=== PATIENT | female | born 1935 | race Caucasian/White ===

== ENCOUNTER → 2016-08-01 | Day surgery (SDC) | payer MEDICARE ==
[~2016-08-01] MED LIST: ACET325T9 PO; ACET500T68 PO; ALLO300T PO; ARFO15VI IH; ARFO15VI NEB; ASPI81TA50 PO; ATOR10TA60 PO; BIFI4CAP PO; BUDE0.5A IH; BUDE0.5A NEB; CARV12.52 PO; CHOL2000 PO; CHOL200027 PO; CILO50TA PO; CLOP75TA PO; COLE3.754 PO; DILT300C2; DILT300C23 PO; DOXY100C2 PO; DOXY100T PO; FENTANYL PF 100 MCG/2 ML VIAL. IV PRN; FORM20VI IH; HYDR25TA9 PO; IV RINGERS,LACTATED 1000ML 1,000 ML IV SCH; LACT1CAP2 PO; LACT1CAP29 PO; LEVO500T38 PO; LIDOCAINE 1% 1 ML SYRINGE. ID PRN; LIDOCAINE 2% PF Vial for OR 5 ML VIAL. ONE; LOSA100T6 PO; LOSA1TAB17 PO; OMEP40CA5 PO; ONDANSETRON PF 4 MG/2 ML VIAL. IV PRN; PANT40TA3 PO; POTA20TA84 PO; PRED-220 PO; PROCHLORPERAZINE 10 MG/2 ML VIAL. IV PRN; PROPOFOL 20 ML IV ONE; TBO-480S SQ; UBID200C4 PO; WARF2.5T PO; WARF2.5T7 PO; WARF3TAB PO; WARF3TAB7 PO; WARF5TAB7 PO; losartan-hctz
[2016-08-01 08:46] VITALS: BP 171/77
== END | disposition home or self-care (01) ==
LOC: ENDOS 06:49
PROVIDERS: ATTEND Internal Medicine Gastroenterology
DX: K22.2 Esophageal obstruction (principal); K29.50 Unspecified chronic gastritis without bleeding; E78.00 Pure hypercholesterolemia, unspecified; I10 Essential (primary) hypertension; J44.9 Chronic obstructive pulmonary disease, unspecified; M19.90 Unspecified osteoarthritis, unspecified site; K21.9 Gastro-esophageal reflux disease without esophagitis; D64.9 Anemia, unspecified; Z90.49 Acquired absence of other specified parts of digestive tract; Z87.01 Personal history of pneumonia (recurrent); Z90.710 Acquired absence of both cervix and uterus; Z87.39 Personal history of other diseases of the musculoskeletal system and connective tissue; Z90.721 Acquired absence of ovaries, unilateral
CPT/HCPCS: 43235; 43450; J2704

== ENCOUNTER → 2016-09-13 | Outpatient (CLI) | payer MEDICARE ==
[2016-08-01 08:46] VITALS: BP 171/77
[~2016-09-13] MED LIST changes: -FENTANYL PF 100 MCG/2 ML VIAL. IV PRN; -IV RINGERS,LACTATED 1000ML 1,000 ML IV SCH; -LIDOCAINE 1% 1 ML SYRINGE. ID PRN; -LIDOCAINE 2% PF Vial for OR 5 ML VIAL. ONE; -ONDANSETRON PF 4 MG/2 ML VIAL. IV PRN; -PROCHLORPERAZINE 10 MG/2 ML VIAL. IV PRN; -PROPOFOL 20 ML IV ONE; -WARF2.5T7 PO; +WARF2.5T71 PO
--- NOTE | 2016-09-13 11:03 | RAD ---
CT scan of the chest without contrast 09/13/2016 Clinical history: History of lung cancer. Cough for 3 months. Technique: Unenhanced, contiguous, 5 mm axial sections were obtained through the chest and upper abdomen. One or more of the following individualized dose reduction techniques were utilized for this study: 1. Automated exposure control. 2. Adjustment of the mA and/or kV according to patient size. 3. Use of iterative reconstruction technique. Findings: Comparison study is dated 03/07/2016. A pacemaker is seen within the left anterior superior chest wall. Leads extend to the right atrium and right ventricle of the heart. Moderate atherosclerotic calcification of the thoracic aorta and its branches is noted. The thoracic aorta is tortuous but tapers normally. The heart is mildly enlarged. A masslike opacity is seen involving the left upper lobe which extends to the left hilum. It measures 4.4 x 4.3 x 3.3 cm in transverse, craniocaudal and AP dimensions. It has decreased in size slightly since the previous examination where it measured 4.8 x 5.4 x 3.4 cm in size. No mediastinal lymphadenopathy is seen. A 1 cm calcified granuloma is seen involving the right hilum. Smaller calcified mediastinal lymph nodes are seen. A graft is seen extending from the right axillary artery along the right lateral chest wall and lateral right abdominal wall, unchanged. Mild emphysematous changes are seen involving both lungs. Minimal dependent subsegmental atelectasis is seen bilaterally. No pneumothorax or pleural effusion is seen. Minimal dependent subsegmental atelectasis is seen involving both lower lobes. Images through the upper abdomen demonstrate moderate to severe atherosclerotic plaque formation involving the abdominal aorta and its branches. Surgical clips are seen within the right upper quadrant of the abdomen consistent with a cholecystectomy. Minimal S shaped curvature of the thoracolumbar spine is seen. Degenerative changes are seen involving the thoracic spine. Impression: 1. Slight interval decrease in size of the masslike opacity involving the left upper lobe consistent with the patient's history of lung cancer. 2. No acute abnormality is seen.
== END | disposition home or self-care (01) ==
LOC: CT 08:48
PROVIDERS: ATTEND Internal Medicine Critical Care Medicine
DX: R05 Cough (principal); Z85.118 Personal history of other malignant neoplasm of bronchus and lung
CPT/HCPCS: 71250

== ENCOUNTER 2016-11-18 15:35 | Emergency (ER) | payer MEDICARE ==
[~2016-11-18] VITALS: Ht 162.6 cm; Wt 72.6 kg
[~2016-11-18 15:35] MED LIST changes: +COLE3.753 PO; -COLE3.754 PO; -LEVO500T38 PO; +LEVO500T59 PO; -UBID200C4 PO; +UBID200C7 PO; -WARF2.5T PO; +WARF2.5T83 PO; -WARF3TAB PO; +WARF3TAB54 PO
[2016-11-18 15:50] VITALS: BP 182/99
[2016-11-18] MEDS ORDERED: MAGN400O7 PO (16:12)
[2016-11-18] MEDS ORDERED: POLY17PO29 PO (16:12)
[2016-11-18] MEDS ORDERED: ACET325T9 PO (16:12)
[2016-11-18] MEDS ORDERED: SENN-37 PO (16:12)
--- NOTE | 2016-11-18 16:12 | PHYS DOC ---
Past Medical History Past Medical History: Cancer, COPD, DVT, GERD, High Cholesterol, Hypertension, Pneumonia, Renal Disease, Vascular Disease Additional Past Medical Histor: Lupus, colitis, sleep apnea, gout, squamous cell, DDD, Mohan's, kidney dz Past Surgical History: Angioplasty, Cholecystectomy, Hysterectomy, Lumbar Laminectomy, Oophorectomy, Pacemaker Additional Past Surgical Histo: breast bx, trigger thumb, stents to LE, renal artery stent, diverticulitis, Alcohol Use: Rarely Drug Use: None Adult General Chief Complaint Chief Complaint: CONSTIPATION HPI HPI 81-year-old female presenting to the emergency department with 2 chief complaints. Chief complaint #1: The patient with multiple comorbidities complains of low back pain. She has a history of low back pain and over the past 4-5 days has had worsening lumbar back pain that is radiating down her left leg. It is worse with walking and improved with rest. She is been taking [id number] medications without any relief. The pain is sharp and intermittent. Complaint #2: The patient complains of constipation. She reports her the past 3 or 4 days she's had less bowel movements and they have been more hard stool. She denies any blood in her stool she denies any numbness weakness or tingling. Review of systems is negative for chest pain shortness of breath nausea vomiting fevers chills bloody stools headache neck stiffness confusion numbness weakness or tingling. All other review of systems is negative unless otherwise noted in history of present illness. Pertinent physical exam findings: The patient has mild tenderness to palpation along the left lumbar region. There are no step-offs ecchymosis lacerations or abrasions present. She denies any injuries or trauma. Positive left straight leg test. Abdomen is soft and nondistended. ED course: 81-year-old female presenting with low back pain and constipation. She drove herself and was unable to find a ride home so unfortunately were unable to give her any medications for pain here area I wrote her prescriptions for pain to go home with along with oral laxatives to follow-up with her doctor in 2-3 days. The patient was then discharged home in stable condition to follow up with their primary care physician over the next 2-3 days. They were to return if their symptoms worsened or if they were concerned for any reason. Face -to-face discharge instructions and return precautions were given. Patient's questions were answered to their satisfaction. Patient is comfortable plan. Review of Systems Review of Systems SEE ABOVE. Allergies Allergies Allergies Coded Allergies Type Severity Reaction Last Updated Verified bleomycin Allergy Severe 08/01/16 Yes cyclophosphamide Allergy Severe 08/01/16 Yes doxorubicin Allergy Severe 08/01/16 Yes etoposide Allergy Severe 08/01/16 Yes ibuprofen Allergy Severe CAUSED SUDDEN SEVERE PAIN PER PT REPORT 08/01/16 Yes methotrexate Allergy Severe 08/01/16 Yes paclitaxel Allergy Severe 08/01/16 Yes vinblastine Allergy Severe 08/01/16 Yes vincristine Allergy Severe 08/01/16 Yes azithromycin Allergy Intermediate LOSS OF HEARING 08/01/16 Yes clarithromycin Allergy Intermediate "SLOWED URINE" 08/01/16 Yes codeine Allergy Intermediate 08/01/16 Yes levofloxacin Allergy Intermediate DIZZY 08/01/16 Yes losartan Allergy Intermediate 08/01/16 Yes metronidazole Allergy Intermediate VOMITING, DIZZY 08/01/16 Yes morphine Allergy Intermediate 08/01/16 Yes roflumilast Allergy Intermediate DIZZY 08/01/16 Yes sulfadimethoxine Allergy Intermediate 08/01/16 Yes trimethoprim Allergy Intermediate 08/01/16 Yes vancomycin Allergy Intermediate Itching 08/01/16 Yes cholestyramine Adverse Reaction Intermediate 08/01/16 Yes pantoprazole Adverse Reaction Intermediate stomach cramps 08/01/16 Yes Physical Exam Physical Exam Constitutional: Well developed, well nourished, no acute distress, non-toxic appearance. [] HENT: Normocephalic, atraumatic, bilateral external ears normal, oropharynx moist, no oral exudates, nose normal. [] Eyes: PERRLA, EOMI, conjunctiva normal, no discharge. [] Neck: Normal range of motion, no tenderness, supple, no stridor. [] Cardiovascular:Heart rate regular rhythm, no murmur [] Lungs & Thorax: Bilateral breath sounds clear to auscultation [] Abdomen: Bowel sounds normal, soft, no tenderness, no masses, no pulsatile masses. [] Skin: Warm, dry, no erythema, no rash. [] Back: see above Extremities: No tenderness, no cyanosis, no clubbing, ROM intact, no edema. [] Neurologic: Alert and oriented X 3, normal motor function, normal sensory function, no focal deficits noted. [] Psychologic: Affect normal, judgement normal, mood normal. [] EKG EKG [] Radiology/Procedures Radiology/Procedures [] Course & Med Decision Making Course & Med Decision Making Pertinent Labs and Imaging studies reviewed. (See chart for details) [] Dragon Disclaimer Dragon Disclaimer This electronic medical record was generated, in whole or in part, using a voice recognition dictation system. Departure Departure Impression: Primary Impression: Constipation Additional Impression: Low back pain Disposition: HOME, SELF-CARE Condition: STABLE Referrals: AFTAB MCCALL MD (PCP) Patient Instructions: Back Exercises, Back Injury Prevention, Back Pain, Adult Additional Instructions: Thank you for allowing us to participate in your care today. Followup with your primary care physician in 3 days if your symptoms do not improve. If you do not have a primary care provider you can ask for a list of our primary care providers. Return to the emergency department you have any new or concerning findings. This should be evaluated by the primary care physician and any necessary consulting services for continued management within a few days after discharge. Return to emergency room if you have any new or concerning symptoms including but not limited to fever, chills, nausea, vomiting, intractable pain, any new rashes, chest pain, shortness of air, uncontrolled bleeding, difficulty breathing, and/or vision loss. Scripts Magnesium Hydroxide (MILK OF MAGNESIA) 400 Mg/5 Ml Oral.susp 400 MG PO DAILY for 5 Days, MISC Prov: NICHOLE GUNN MD 11/18/16 Sennosides/Docusate Sodium (SENOKOT-S TABLET) 1 Each Tablet 1 TAB PO BID, #10 TAB Prov: NICHOLE GUNN MD 11/18/16 Polyethylene Glycol 3350 (MIRALAX) 17 Gm Powd.pack 1 PACKET PO DAILY, #30 PACKET 3 Refills Prov: NICHOLE GUNN MD 11/18/16 Acetaminophen (TYLENOL) 325 Mg Tablet 650 MG PO PRN Q8HRS Y for PAIN, #20 Prov: NICHOLE GUNN MD 11/18/16 Problem Qualifiers NICHOLE GUNN MD Nov 18, 2016 16:12
== END 2016-11-18 16:20 | disposition home or self-care (01) ==
LOC: ER 15:35
DX: M54.5 Low back pain (principal); K59.00 Constipation, unspecified; K22.70 Barrett's esophagus without dysplasia; E78.00 Pure hypercholesterolemia, unspecified; G47.30 Sleep apnea, unspecified; I10 Essential (primary) hypertension; J44.9 Chronic obstructive pulmonary disease, unspecified; K21.9 Gastro-esophageal reflux disease without esophagitis; Z95.0 Presence of cardiac pacemaker; Z90.721 Acquired absence of ovaries, unilateral; Z86.718 Personal history of other venous thrombosis and embolism; Z90.49 Acquired absence of other specified parts of digestive tract; Z90.710 Acquired absence of both cervix and uterus; M10.9 Gout, unspecified; Z87.01 Personal history of pneumonia (recurrent); Z88.1 Allergy status to other antibiotic agents; Z88.5 Allergy status to narcotic agent; Z88.2 Allergy status to sulfonamides; Z88.8 Allergy status to other drugs, medicaments and biological substances
CPT/HCPCS: 99284

== ENCOUNTER 2017-02-10 13:20 | Emergency (ER) | payer MEDICARE ==
[~2017-02-10] VITALS: Ht 165.1 cm; Wt 69.4 kg
[~2017-02-10 13:20] MED LIST changes: +MAGN400O7 PO; +POLY17PO29 PO; +SENN-37 PO
[2017-02-10 13:40] VITALS: BP 179/83
--- NOTE | 2017-02-10 14:10 | PHYS DOC ---
Past Medical History Past Medical History: Cancer, COPD, DVT, GERD, High Cholesterol, Hypertension, Pneumonia, Renal Disease, Vascular Disease Additional Past Medical Histor: Lupus, colitis, sleep apnea, gout, squamous cell, DDD, Mohan's, kidney dz Past Surgical History: Angioplasty, Cholecystectomy, Hysterectomy, Lumbar Laminectomy, Oophorectomy, Pacemaker Additional Past Surgical Histo: breast bx, trigger thumb, stents to LE, renal artery stent, diverticulitis, Alcohol Use: Rarely Drug Use: None Adult General Chief Complaint Chief Complaint: tongue pain HPI HPI 81-year-old female presenting to the emergency department today with pain in her tongue is worse when she swallows. She denies any difficulty swallowing or difficulty breathing or drooling. The pain is started approximate 7-10 days ago. It is sharp shooting pain worse with eating and without alleviating factors. She describes the pain in the back of her tongue on the right side. Review of systems is negative for chest pain shortness of breath stridor fevers chills cough neck swelling jaw pain or neck stiffness or neck pain. She denies any pain in her restorationism. She denies headache. She denies vision changes nausea vomiting numbness weakness or tingling. All other review of systems is negative unless otherwise noted in history of present illness. ED course: 81-year-old female presenting with right-sided posterior tongue pain. Patient is chronically on oxygen. He does not have any new oxygen requirements. On examination of the back of her tongue am unable to appreciate any lesions ulcerations lacerations or ecchymosis abrasions or erythema. She does not have a [employer]. She has normal range of motion of the neck and a nontender temporal artery. I have referred the patient to a dentist or an ENT doctor for further visual examination of the back of the tongue. The patient was then discharged home in stable condition to follow up with their primary care physician over the next 2-3 days. They were to return if their symptoms worsened or if they were concerned for any reason. [id number] discharge instructions and return precautions were given. Patient's questions were answered to their satisfaction. Patient is comfortable plan. Review of Systems Review of Systems SEE ABOVE. Allergies Allergies Allergies Coded Allergies Type Severity Reaction Last Updated Verified bleomycin Allergy Severe 08/01/16 Yes cyclophosphamide Allergy Severe 08/01/16 Yes doxorubicin Allergy Severe 08/01/16 Yes etoposide Allergy Severe 08/01/16 Yes ibuprofen Allergy Severe CAUSED SUDDEN SEVERE PAIN PER PT REPORT 08/01/16 Yes methotrexate Allergy Severe 08/01/16 Yes paclitaxel Allergy Severe 08/01/16 Yes vinblastine Allergy Severe 08/01/16 Yes vincristine Allergy Severe 08/01/16 Yes azithromycin Allergy Intermediate LOSS OF HEARING 08/01/16 Yes clarithromycin Allergy Intermediate "SLOWED URINE" 08/01/16 Yes codeine Allergy Intermediate 08/01/16 Yes levofloxacin Allergy Intermediate DIZZY 08/01/16 Yes losartan Allergy Intermediate 08/01/16 Yes metronidazole Allergy Intermediate VOMITING, DIZZY 08/01/16 Yes morphine Allergy Intermediate 08/01/16 Yes roflumilast Allergy Intermediate DIZZY 08/01/16 Yes sulfadimethoxine Allergy Intermediate 08/01/16 Yes trimethoprim Allergy Intermediate 08/01/16 Yes vancomycin Allergy Intermediate Itching 08/01/16 Yes cholestyramine Adverse Reaction Intermediate 08/01/16 Yes pantoprazole Adverse Reaction Intermediate stomach cramps 08/01/16 Yes Physical Exam Physical Exam SEE ABOVE Constitutional: Well developed, well nourished, no acute distress, non-toxic appearance. [] HENT: Normocephalic, atraumatic, bilateral external ears normal, oropharynx moist, no oral exudates, nose normal. []SEE ABOVE Eyes: PERRLA, EOMI, conjunctiva normal, no discharge. [] Neck: Normal range of motion, no tenderness, supple, no stridor. [] Cardiovascular:Heart rate regular rhythm, no murmur [] Lungs & Thorax: Bilateral breath sounds clear to auscultation [] Abdomen: Bowel sounds normal, soft, no tenderness, no masses, no pulsatile masses. [] Skin: Warm, dry, no erythema, no rash. [] Back: No tenderness, no CVA tenderness. [] Extremities: No tenderness, no cyanosis, no clubbing, ROM intact, no edema. [] Neurologic: Alert and oriented X 3, normal motor function, normal sensory function, no focal deficits noted. [] Psychologic: Affect normal, judgement normal, mood normal. [] EKG EKG [] Radiology/Procedures Radiology/Procedures [] Course & Med Decision Making Course & Med Decision Making Pertinent Labs and Imaging studies reviewed. (See chart for details) [] Dragon Disclaimer Dragon Disclaimer This electronic medical record was generated, in whole or in part, using a voice recognition dictation system. Departure Departure Impression: Primary Impression: Tongue pain Disposition: 01 HOME, SELF-CARE Condition: STABLE Referrals: AFTAB MCCALL MD (PCP) Additional Instructions: I am going to refer you to a dentist and an firearms sales associate called an senior care assistant within the next 7 days. I recommend [id number] ibuprofen and Tylenol for pain control until that time. Thank you for allowing us to participate in your care today. Call your Primary Doctor tomorrow and inform them of your visit today. If you do not have a primary care provider you can ask for a list of our primary care providers. Return to the emergency department you have any new or concerning findings. This should be evaluated by the primary care physician and any necessary consulting services for continued management within a few days after discharge. Return to emergency room if you have any new or concerning symptoms including but not limited to fever, chills, nausea, vomiting, intractable pain, any new rashes, chest pain, shortness of air, uncontrolled bleeding, difficulty breathing, and/or vision loss. NICHOLE GUNN MD Feb 10, 2017 14:10
== END 2017-02-10 14:54 | disposition home or self-care (01) ==
LOC: ER 13:20
DX: K14.6 Glossodynia (principal); J44.9 Chronic obstructive pulmonary disease, unspecified; K21.9 Gastro-esophageal reflux disease without esophagitis; I12.9 Hypertensive chronic kidney disease with stage 1 through stage 4 chronic kidney disease, or unspecified chronic kidney disease; N18.9 Chronic kidney disease, unspecified; M32.9 Systemic lupus erythematosus, unspecified; M10.9 Gout, unspecified; Z95.0 Presence of cardiac pacemaker; Z99.81 Dependence on supplemental oxygen; K22.70 Barrett's esophagus without dysplasia; G47.30 Sleep apnea, unspecified; E78.00 Pure hypercholesterolemia, unspecified; Z90.710 Acquired absence of both cervix and uterus; Z90.49 Acquired absence of other specified parts of digestive tract; Z90.722 Acquired absence of ovaries, bilateral; Z95.5 Presence of coronary angioplasty implant and graft; Z88.1 Allergy status to other antibiotic agents; Z88.5 Allergy status to narcotic agent; Z88.2 Allergy status to sulfonamides; Z88.6 Allergy status to analgesic agent; Z88.8 Allergy status to other drugs, medicaments and biological substances
CPT/HCPCS: 99281

== ENCOUNTER → 2017-02-12 | Outpatient (CLI) | payer MEDICARE ==
[2017-02-10 13:40] VITALS: BP 179/83
--- NOTE | 2017-02-12 13:30 | KCIC ---
Clinical Indication: Postmenopausal screening. Osteopenia Technique: Bone Densitometry was performed with dual photon absorption of the lumbar spine and proximal left femur. This is a baseline exam. Findings: Lumbar Spine: Bone density is 1.124 g/cm2 for L1-L4. T-Score is 0.7 and Z-score 3.4. Age-matched percentage is 150 %. Left Femur Total: Bone density is 0.682 g/cm2. T-Score is -2.1 and Z-score 0.0. Age-matched percentage is 100%. Impression: 1. Osteopenia in the left femur. 2. Normal bone marrow density in the lumbar spine. Electronically signed by: Artie Mehta MD (02/12/2017 1:26 PM) [id number]
== END | disposition home or self-care (01) ==
LOC: KCIC DEXA 12:42
PROVIDERS: ATTEND Physician Assistant Surgical
DX: M85.80 Other specified disorders of bone density and structure, unspecified site (principal); Z78.0 Asymptomatic menopausal state
CPT/HCPCS: 77080

== ENCOUNTER 2017-03-08 09:55 | Emergency (ER) | payer MEDICARE ==
[~2017-03-08 09:55] MED LIST changes: -LOSA1TAB17 PO; +LOSA1TAB22 PO
--- NOTE | 2017-03-08 12:08 | RAD ---
Chest, 2 views, 03/08/2017: History: Cough, shortness of breath, coughing up blood Comparison is made to a study from 05/31/2016. A left-sided transvenous pacemaker remains in place with 2 leads extending into the right heart. The heart is mildly enlarged. There is extensive calcific plaquing of the aorta. No pulmonary infiltrate is seen. There is no evidence of pleural fluid. The bony structures are demineralized. The left suprahilar opacity seen on the CT study of 09/13/2016 is not clearly visible radiographically. It may be partially obscured by the overlying left upper chest pacemaker generator. Follow-up CT scanning would best delineate this process, if clinically indicated. IMPRESSION: 1. Mild cardiomegaly and aortic atherosclerosis. 2. No acute cardiopulmonary abnormality is detected.
--- NOTE | 2017-03-08 12:09 | EKG ---
[facility] [address] [place] [address] Test Date: 2017-03-08 Test Time: 12:00:45 Pat Name: SLIME MOTA Department: Room: Gender: F [employer] Curator: : 1935 Requested By: ERIC CASTELLON Order Number: [id number] Reading MD: Measurements Intervals [place] Rate: 64 P: 53 LA: 302 QRS: -9 QRSD: 78 T: 21 QT: 382 QTc: 394 Interpretive Statements SINUS RHYTHM PROLONGED LA INTERVAL LEFTWARD AXIS QRS(T) CONTOUR ABNORMALITY CONSISTENT WITH ANTEROSEPTAL INFARCT AGE UNDETERMINED CONSISTENT WITH INFERIOR INFARCT PROBABLY OLD NON SPECIFIC ST DEPRESSION RI6.01 Unconfirmed report No previous ECG available for comparison
[2017-03-08 12:26] LABS: CALCIUM 9.2 mg/dL (8.5-10.1); GFR 53.3
[2017-03-08 12:28] LABS: HEMATOCRIT 38.7 % (36.0-47.0); HEMOGLOBIN 12.4 g/dL (12.0-15.5); RED BLOOD COUNT 4.18 x10^6/uL (3.50-5.40); RED CELL DISTRIBUTION WIDTH 17.6 % (11.5-14.5); WHITE BLOOD COUNT 9.7 x10^3/uL (4.0-11.0)
[2017-03-08 12:32] LABS: ALBUMIN 2.9 g/dL (3.4-5.0); ALBUMIN/GLOBULIN RATIO 0.8 (1.0-1.7); TOTAL BILIRUBIN 0.5 mg/dL (0.2-1.0); TOTAL PROTEIN 6.4 g/dL (6.4-8.2)
[2017-03-08 12:33] LABS: INR 2.4 (0.8-1.1); PROTHROMBIN TIME PATIENT 24.6 SEC (11.7-14.0)
--- NOTE | 2017-03-08 12:36 | RAD ---
Neck for soft tissues, 2 views, 03/08/2017: History: Shortness of breath, hemoptysis There is extensive calcific plaquing at both carotid bifurcations. There are cartilaginous calcifications in the laryngeal region. The epiglottis is normal in size and configuration. No tracheal narrowing is seen. No prevertebral soft tissue swelling is evident. The bony structures are demineralized. There are moderate degenerative changes in the cervical spine. IMPRESSION: No acute abnormality is detected.
[2017-03-08 13:00] VITALS: BP 189/78
--- NOTE | 2017-03-08 13:31 | PHYS DOC ---
Past Medical History Past Medical History: Cancer, COPD, DVT, GERD, High Cholesterol, Hypertension, Pneumonia, Renal Disease, Vascular Disease Additional Past Medical Histor: Lupus, colitis, sleep apnea, gout, squamous cell, DDD, Mohan's, kidney dz Past Surgical History: Angioplasty, Cholecystectomy, Hysterectomy, Lumbar Laminectomy, Oophorectomy, Pacemaker Additional Past Surgical Histo: breast bx, trigger thumb, stents to LE, renal artery stent, diverticulitis, Alcohol Use: Rarely Drug Use: None Adult General Chief Complaint Chief Complaint: COUGH HPI HPI Patient is a 81 year old female with a history of lung cancer and A. fib presents the ED stating that she tasted blood in her mouth since this morning. States she has had no episodes since this morning. States she spit up what appeared to be a clot. No active bleeding at this time. Patient denies chest pain, shortness of breath, dizziness, nausea/vomiting, abdominal pain, weakness or dark stools. Review of Systems Review of Systems Constitutional: Denies fever or chills [] Eyes: Denies change in visual acuity, redness, or eye pain [] HENT: Denies nasal congestion or sore throat [] Respiratory: Denies cough or shortness of breath [] Cardiovascular: No additional information not addressed in HPI [] GI: Denies abdominal pain, nausea, vomiting, bloody stools or diarrhea [] : Denies dysuria or hematuria [] Musculoskeletal: Denies back pain or joint pain [] Integument: Denies rash or skin lesions [] Neurologic: Denies headache, focal weakness or sensory changes [] Endocrine: Denies polyuria or polydipsia [] Allergies Allergies Allergies Coded Allergies Type Severity Reaction Last Updated Verified bleomycin Allergy Severe 08/01/16 Yes cyclophosphamide Allergy Severe 08/01/16 Yes doxorubicin Allergy Severe 08/01/16 Yes etoposide Allergy Severe 08/01/16 Yes ibuprofen Allergy Severe CAUSED SUDDEN SEVERE PAIN PER PT REPORT 08/01/16 Yes methotrexate Allergy Severe 08/01/16 Yes paclitaxel Allergy Severe 08/01/16 Yes vinblastine Allergy Severe 08/01/16 Yes vincristine Allergy Severe 08/01/16 Yes azithromycin Allergy Intermediate LOSS OF HEARING 08/01/16 Yes clarithromycin Allergy Intermediate "SLOWED URINE" 08/01/16 Yes codeine Allergy Intermediate 08/01/16 Yes levofloxacin Allergy Intermediate DIZZY 08/01/16 Yes losartan Allergy Intermediate 08/01/16 Yes metronidazole Allergy Intermediate VOMITING, DIZZY 08/01/16 Yes morphine Allergy Intermediate 08/01/16 Yes roflumilast Allergy Intermediate DIZZY 08/01/16 Yes sulfadimethoxine Allergy Intermediate 08/01/16 Yes trimethoprim Allergy Intermediate 08/01/16 Yes vancomycin Allergy Intermediate Itching 08/01/16 Yes cholestyramine Adverse Reaction Intermediate 08/01/16 Yes pantoprazole Adverse Reaction Intermediate stomach cramps 08/01/16 Yes Physical Exam Physical Exam Constitutional: Well developed, well nourished, no acute distress, non-toxic appearance. [] HENT: Normocephalic, atraumatic, bilateral external ears normal, oropharynx moist, no oral exudates, nose normal. [] Eyes: PERRLA, EOMI, conjunctiva normal, no discharge. [] Neck: Normal range of motion, no tenderness, supple, no stridor. [] Cardiovascular:Heart rate regular rhythm, no murmur [] Lungs & Thorax: Bilateral breath sounds clear to auscultation [] Abdomen: Bowel sounds normal, soft, no tenderness, no masses, no pulsatile masses. [] Skin: Warm, dry, no erythema, no rash. [] Back: No tenderness, no CVA tenderness. [] Extremities: No tenderness, no cyanosis, no clubbing, ROM intact, no edema. [] Neurologic: Alert and oriented X 3, normal motor function, normal sensory function, no focal deficits noted. [] Psychologic: Affect normal, judgement normal, mood normal. [] Current Patient Data Vital Signs Vital Signs Date Time Temp Pulse Resp B/P (MAP) Pulse Ox O2 Delivery O2 Flow Rate FiO2 03/08/17 11:04 98.1 85 20 189/81 (117) 92 Nasal Cannula 2.0 98.1 Lab Values Laboratory Tests Test 03/08/17 12:10 White Blood Count 9.7 x10^3/uL (4.0-11.0) Red Blood Count 4.18 x10^6/uL (3.50-5.40) Hemoglobin 12.4 g/dL (12.0-15.5) Hematocrit 38.7 % (36.0-47.0) Mean Corpuscular Volume 92 fL (79-100) Mean Corpuscular Hemoglobin 30 pg (25-35) Mean Corpuscular Hemoglobin Concent 32 g/dL (31-37) Red Cell Distribution Width 17.6 % (11.5-14.5) H Platelet Count 215 x10^3/uL (140-400) Prothrombin Time 24.6 SEC (11.7-14.0) H Prothrombin Time INR 2.4 (0.8-1.1) H PTT 40 SEC (24-38) H Sodium Level 144 mmol/L (136-145) Potassium Level 4.0 mmol/L (3.5-5.1) Chloride Level 109 mmol/L (98-107) H Carbon Dioxide Level 31 mmol/L (21-32) Anion Gap 4 (6-14) L Blood Urea Nitrogen 18 mg/dL (7-20) Creatinine 1.0 mg/dL (0.6-1.0) Estimated GFR (Cockcroft-Gault) 53.3 BUN/Creatinine Ratio 18 (6-20) Glucose Level 88 mg/dL (70-99) Calcium Level 9.2 mg/dL (8.5-10.1) Total Bilirubin 0.5 mg/dL (0.2-1.0) Aspartate Amino Transferase (AST) 23 U/L (15-37) Alanine Aminotransferase (ALT) 24 U/L (14-59) Alkaline Phosphatase 90 U/L (46-116) Total Protein 6.4 g/dL (6.4-8.2) Albumin 2.9 g/dL (3.4-5.0) L Albumin/Globulin Ratio 0.8 (1.0-1.7) L Laboratory Tests 03/08/17 12:10 Laboratory Tests 03/08/17 12:10 EKG EKG [] EKG shows sinus rhythm at 64 bpm. No STEMI or acute changes. Radiology/Procedures Radiology/Procedures []PROCEDURE: NECK SOFT TISSUE Neck for soft tissues, 2 views, 03/08/2017: History: Shortness of breath, hemoptysis There is extensive calcific plaquing at both carotid bifurcations. There are cartilaginous calcifications in the laryngeal region. The epiglottis is normal in size and configuration. No tracheal narrowing is seen. No prevertebral soft tissue swelling is evident. The bony structures are demineralized. There are moderate degenerative changes in the cervical spine. IMPRESSION: No acute abnormality is detected. PROCEDURE: CHEST PA & LATERAL Chest, 2 views, 03/08/2017: History: Cough, shortness of breath, coughing up blood Comparison is made to a study from 05/31/2016. A left-sided transvenous pacemaker remains in place with 2 leads extending into the right heart. The heart is mildly enlarged. There is extensive calcific plaquing of the aorta. No pulmonary infiltrate is seen. There is no evidence of pleural fluid. The bony structures are demineralized. The left suprahilar opacity seen on the CT study of 09/13/2016 is not clearly visible radiographically. It may be partially obscured by the overlying left upper chest pacemaker generator. Follow-up CT scanning would best delineate this process, if clinically indicated. IMPRESSION: 1. Mild cardiomegaly and aortic atherosclerosis. 2. No acute cardiopulmonary abnormality is detected. Course & Med Decision Making Course & Med Decision Making Pertinent Labs and Imaging studies reviewed. (See chart for details) [] Dragon Disclaimer Dragon Disclaimer This electronic medical record was generated, in whole or in part, using a voice recognition dictation system. Departure Departure Impression: Primary Impression: Cough Additional Impression: Viral syndrome Disposition: 01 HOME, SELF-CARE Condition: STABLE Referrals: AFTAB MCCALL MD (PCP) MARIO RICHARDSON MD, SCOTT S MD Patient Instructions: Cough, Adult Problem Qualifiers ERIC CASTELLON Mar 08, 2017 13:31
== END 2017-03-08 13:35 | disposition home or self-care (01) ==
LOC: ER 09:55
DX: R05 Cough (principal); B34.9 Viral infection, unspecified; E78.00 Pure hypercholesterolemia, unspecified; I12.9 Hypertensive chronic kidney disease with stage 1 through stage 4 chronic kidney disease, or unspecified chronic kidney disease; N18.9 Chronic kidney disease, unspecified; J44.9 Chronic obstructive pulmonary disease, unspecified; K21.9 Gastro-esophageal reflux disease without esophagitis; Z86.718 Personal history of other venous thrombosis and embolism; M32.9 Systemic lupus erythematosus, unspecified; Z90.710 Acquired absence of both cervix and uterus; Z90.49 Acquired absence of other specified parts of digestive tract; Z95.0 Presence of cardiac pacemaker; Z88.1 Allergy status to other antibiotic agents; Z88.6 Allergy status to analgesic agent; Z88.5 Allergy status to narcotic agent; Z88.2 Allergy status to sulfonamides; Z88.8 Allergy status to other drugs, medicaments and biological substances
CPT/HCPCS: 36415; 70360; 71020; 80053; 85027; 85610; 85730; 93005; 99285-25

== ENCOUNTER → 2017-06-07 | Outpatient (CLI) | payer MEDICARE | END | disposition home or self-care (01) | LOC: US 11:02 | DX: I73.9 Peripheral vascular disease, unspecified (principal); R60.9 Edema, unspecified; Z86.718 Personal history of other venous thrombosis and embolism | CPT/HCPCS: 93970 ==

== ENCOUNTER 2017-07-21 11:12 | Emergency (ER) | payer MEDICARE ==
[2017-07-21 12:28] LABS: ADD MAN DIFF? NO
[2017-07-21 12:39] LABS: BASO % 0 % (0-3); EOS # 0.2 x10^3/uL (0.0-0.7); EOS % 2 % (0-3); HEMATOCRIT 37.3 % (36.0-47.0); LYMPH # 0.9 x10^3/uL (1.0-4.8); LYMPH % 11 % (24-48); MEAN CORPUSCULAR HEMOGLOBIN 29 pg (25-35); MEAN CORPUSCULAR HGB CONC 32 g/dL (31-37); MEAN CORPUSCULAR VOLUME 91 fL (79-100); MONO # 0.8 x10^3/uL (0.0-1.1); MONO % 9 % (0-9); NEUT # 6.5 x10^3uL (1.8-7.7); NEUT % 78 % (31-73); PLATELET COUNT 152 x10^3/uL (140-400); RED BLOOD COUNT 4.11 x10^6/uL (3.50-5.40); RED CELL DISTRIBUTION WIDTH 18.7 % (11.5-14.5); WHITE BLOOD COUNT 8.3 x10^3/uL (4.0-11.0)
[2017-07-21 12:40] LABS: ANION GAP 8 (6-14); BLOOD UREA NITROGEN 29 mg/dL (7-20); BUN/CREATININE RATIO 24 (6-20); CALCIUM 9.4 mg/dL (8.5-10.1); CARBON DIOXIDE 26 mmol/L (21-32); CHLORIDE 106 mmol/L (98-107); CREATININE 1.2 mg/dL (0.6-1.0); GFR 43.1; GLUCOSE 96 mg/dL (70-99); POTASSIUM 3.9 mmol/L (3.5-5.1); SODIUM 140 mmol/L (136-145)
[2017-07-21 12:47] LABS: ALBUMIN 2.5 g/dL (3.4-5.0); ALBUMIN/GLOBULIN RATIO 0.8 (1.0-1.7); ALK PHOS 73 U/L (46-116); ALT (SGPT) 20 U/L (14-59); AST (SGOT) 16 U/L (15-37); TOTAL BILIRUBIN 0.4 mg/dL (0.2-1.0); TOTAL PROTEIN 5.8 g/dL (6.4-8.2)
[2017-07-21 14:05] LABS: BILIRUBIN,URINE NEGATIVE (NEG); CLARITY,URINE CLOUDY; COLOR,URINE YELLOW; GLUCOSE,URINE NEGATIVE (NEG); NITRITE,URINE NEGATIVE (NEG); PROTEIN,URINE 100 mg/dL (NEG-TRACE); UROBILINOGEN,URINE 0.2 mg/dL (0.2 mg/dL)
[2017-07-21 14:39] LABS: BACTERIA,URINE 0 /HPF (0-FEW); RBC,URINE 0 /HPF (0-2)
[2017-07-21 14:40] LABS: SQUAMOUS EPITHELIAL CELL,UR FEW /LPF
== END 2017-07-21 15:16 | disposition home or self-care (01) ==
LOC: ER 11:12
DX: R79.89 Other specified abnormal findings of blood chemistry (principal); K21.9 Gastro-esophageal reflux disease without esophagitis; J44.9 Chronic obstructive pulmonary disease, unspecified; E78.00 Pure hypercholesterolemia, unspecified; M10.9 Gout, unspecified; G47.30 Sleep apnea, unspecified; I12.9 Hypertensive chronic kidney disease with stage 1 through stage 4 chronic kidney disease, or unspecified chronic kidney disease; N18.9 Chronic kidney disease, unspecified; Z95.0 Presence of cardiac pacemaker; Z86.718 Personal history of other venous thrombosis and embolism; Z90.49 Acquired absence of other specified parts of digestive tract; Z90.710 Acquired absence of both cervix and uterus; Z98.890 Other specified postprocedural states; Z88.6 Allergy status to analgesic agent; Z88.1 Allergy status to other antibiotic agents; Z88.5 Allergy status to narcotic agent; Z88.8 Allergy status to other drugs, medicaments and biological substances
CPT/HCPCS: 36415; 80053; 81001; 85025; 87086; 99284

== ENCOUNTER → 2017-11-08 | Outpatient (CLI) | payer MEDICARE ==
[~2017-11-08] MED LIST changes: -ACET325T9 PO; -ACET500T68 PO; -ALLO300T PO; -ARFO15VI IH; -ARFO15VI NEB; -ASPI81TA50 PO; -ATOR10TA60 PO; -BIFI4CAP PO; -BUDE0.5A IH; -BUDE0.5A NEB; -CARV12.52 PO; -CHOL2000 PO; -CHOL200027 PO; -CILO50TA PO; -CLOP75TA PO; -COLE3.753 PO; -DILT300C2; -DILT300C23 PO; -DOXY100C2 PO; -DOXY100T PO; -FORM20VI IH; -HYDR25TA9 PO; -LACT1CAP2 PO; -LACT1CAP29 PO; -LEVO500T59 PO; -LOSA100T6 PO; -LOSA1TAB22 PO; -MAGN400O7 PO; -OMEP40CA5 PO; -PANT40TA3 PO; -POLY17PO29 PO; -POTA20TA84 PO; -PRED-220 PO; +REGADENOSON 0.4 MG/5 ML DISP.SYRIN. IV; -SENN-37 PO; -TBO-480S SQ; -UBID200C7 PO; -WARF2.5T71 PO; -WARF2.5T83 PO; -WARF3TAB54 PO; -WARF3TAB7 PO; -WARF5TAB7 PO; -losartan-hctz
== END | disposition home or self-care (01) ==
LOC: NM 08:00
DX: I70.202 Unspecified atherosclerosis of native arteries of extremities, left leg (principal); I49.3 Ventricular premature depolarization; J44.9 Chronic obstructive pulmonary disease, unspecified; I12.9 Hypertensive chronic kidney disease with stage 1 through stage 4 chronic kidney disease, or unspecified chronic kidney disease; N18.3 Chronic kidney disease, stage 3 (moderate); Z87.891 Personal history of nicotine dependence; Z95.0 Presence of cardiac pacemaker
CPT/HCPCS: 78452; 93017; 93925; 96374; 96375; 96376; A9500; J2785

== ENCOUNTER → 2018-01-29 | Outpatient (CLI) | payer MEDICARE ==
[2017-09-20 11:00] VITALS: BP 171/71
[~2018-01-29] MED LIST changes: +ACET325T9 PO; +ACET500T68 PO; +ALLO300T PO; +ARFO15VI IH; +ARFO15VI NEB; +ASPI81TA50 PO; +ATOR10TA60 PO; +BARIUM SULFATE 40% (APPLE) 148 GM PWD. PO ONE; +BIFI4CAP PO; +BUDE0.5A IH; +BUDE0.5A NEB; +CALC600T4 PO; +CARV12.52 PO; +CHOL10003 PO; +CHOL2000 PO; +CHOL200027 PO; +CILO50TA PO; +CLOP75TA PO; +COLE3.753 PO; +DILT240C2 PO; +DILT300C2; +DILT300C2 PO; +DILT300C23 PO; +DIPH25CA58 PO; +DOXY100C2 PO; +DOXY100T PO; +FORM20VI IH; +FURO-69 PO; +HYDR-2868 PO; +HYDR25TA9 PO; +IPRA3AMP29 NEB; +LACT1CAP2 PO; +LACT1CAP29 PO; +LACT1CAP8 PO; +LEVO500T59 PO; +LOSA100T7 PO; +LOSA1TAB22 PO; +MAGN400O7 PO; +MECL25TA3 PO; +OMEP40CA5 PO; +PANT40TA3 PO; +POLY17PO29 PO; +POTA20TA84 PO; +PRED-220 PO; +PSYL0.5242 PO; -REGADENOSON 0.4 MG/5 ML DISP.SYRIN. IV; +SENN-37 PO; +SENN-79 PO; +SIME125T PO; +TBO-480S SQ; +UBID200C7 PO; +WARF-31 PO; +WARF-78 PO; +WARF2.5T71 PO; +WARF2.5T83 PO; +WARF3TAB50 PO; +WARF3TAB54 PO; +losartan-hctz; +preser vision PO
--- NOTE | 2018-01-29 15:13 | RAD ---
Video dysphasia study, 01/29/2018: History: Dysphasia The swallowing mechanism was examined fluoroscopically in the lateral projection while the patient ingested a variety of food materials mixed with barium. 2.9 minutes of fluoroscopy time was utilized. One video fluoroscopic loop was recorded by a member of the speech Department. No significant laryngeal penetration or aspiration was observed with the patient ingested the thin materials, the thicker materials or the barium coated solids. There is a small amount of intermittent vallecular and piriform sinus residue. There are mild posterior impressions upon the cervical esophagus due to cervical spurs. No obstructive process was delineated. IMPRESSION: No current evidence of aspiration.
== END | disposition home or self-care (01) ==
LOC: RAD 14:20
PROVIDERS: ATTEND Internal Medicine Gastroenterology
DX: R13.10 Dysphagia, unspecified (principal)
CPT/HCPCS: 74230; 92611; G8996; G8997; G8998

== ENCOUNTER → 2018-03-14 | Day surgery (SDC) | payer MEDICARE ==
[~2018-03-14] MED LIST changes: -BARIUM SULFATE 40% (APPLE) 148 GM PWD. PO ONE; +IV RINGERS,LACTATED 1000ML 1,000 ML IV SCH; +LIDOCAINE 1% PF 2 ML VIAL. ID PRN; +LIDOCAINE 2% PF 2ML VIAL. ONE; +ONDANSETRON PF 4 MG/2 ML VIAL. IV PRN; +PROCHLORPERAZINE 10 MG/2 ML VIAL. IV PRN; +PROPOFOL 20 ML IV ONE; +fentaNYL PF VIAL 100 MCG/2 ML VIAL IV PRN
[2018-03-14 11:25] VITALS: BP 179/77
--- NOTE | 2018-03-14 22:41 | CONS ---
DATE OF CONSULTATION: 03/14/2018 REASON FOR CONSULTATION: Dysphagia and hematemesis. HISTORY OF PRESENT ILLNESS: An 82-year-old female, with past medical history significant for lupus, diverticulitis, Mohan's, MS, lung cancer, COPD, renal insufficiency, status post cardiac stents, is seen for dysphagia for liquids and occasionally solids. Speech pathology evaluation was unrevealing for aspiration. She is here for dilatation. Last did apparently helped approximately a year ago for a month's period of time. She is otherwise without additional complaints. PAST MEDICAL HISTORY: Hypertension, hyperlipidemia, history of lung cancer, history of an MS, history of cardiac stents. ALLERGIES: Per the MAR. MEDICATIONS: Per the MAR. SOCIAL HISTORY: She is a former smoker, drinker. FAMILY HISTORY: Significant for colon cancer with her brother. Diabetes in siblings. MS in multiple family members. PAST SURGICAL HISTORY: Status post cholecystectomy, hysterectomy, tonsillectomy, eye surgery and appendectomy. REVIEW OF SYSTEMS: Per records. PHYSICAL EXAMINATION: GENERAL: Reveals a thin female. VITAL SIGNS: Temperature is 98, pulse 62, respiratory rate is 20. HEENT: Normocephalic and atraumatic head. Pupils and extraocular movements are not tested. Sclerae are icteric. NECK: Supple. LUNGS: Reveal decreased breath sounds anteriorly. CARDIOVASCULAR: S1, S2 without S3, S4 or appreciable murmur. ABDOMEN: Soft abdomen, normal bowel sounds without appreciable hepatosplenomegaly. EXTREMITIES: Reveals no cyanosis, clubbing or edema. IMPRESSION: Dysphagia, most likely is multifactorial with the lupus component of presbyesophagus certainly is possibly contributing as well as eosinophilic esophagitis, Mohan's and achalasia as well as malignancy. Therefore, recommend upper endoscopy with possible biopsy and dilatation. Risks and benefits have been discussed. The patient is willing to proceed. GAEL CULLEN MD DR: FRANCES/dianelys JOB#: [id number] / [id number]
== END | disposition home or self-care (01) ==
LOC: SURG 09:11
PROVIDERS: ATTEND Internal Medicine Gastroenterology
DX: K22.2 Esophageal obstruction (principal); K31.7 Polyp of stomach and duodenum; I10 Essential (primary) hypertension; E78.5 Hyperlipidemia, unspecified; J44.9 Chronic obstructive pulmonary disease, unspecified; I25.2 Old myocardial infarction; Z95.5 Presence of coronary angioplasty implant and graft; Z85.118 Personal history of other malignant neoplasm of bronchus and lung; Z72.89 Other problems related to lifestyle; Z87.891 Personal history of nicotine dependence; Z83.3 Family history of diabetes mellitus; Z82.49 Family history of ischemic heart disease and other diseases of the circulatory system; Z80.0 Family history of malignant neoplasm of digestive organs; Z90.49 Acquired absence of other specified parts of digestive tract; Z90.710 Acquired absence of both cervix and uterus; Z98.890 Other specified postprocedural states
CPT/HCPCS: 43235; 43450; J2001; J2704

== ENCOUNTER → 2018-04-18 | Outpatient (CLI) | payer MEDICARE ==
[2018-03-14 11:25] VITALS: BP 179/77
[~2018-04-18] MED LIST changes: -IV RINGERS,LACTATED 1000ML 1,000 ML IV SCH; -LIDOCAINE 1% PF 2 ML VIAL. ID PRN; -LIDOCAINE 2% PF 2ML VIAL. ONE; -ONDANSETRON PF 4 MG/2 ML VIAL. IV PRN; +PRED20TA PO; -PROCHLORPERAZINE 10 MG/2 ML VIAL. IV PRN; -PROPOFOL 20 ML IV ONE; -SENN-79 PO; +SENN-80 PO; +VALA1000 PO; -fentaNYL PF VIAL 100 MCG/2 ML VIAL IV PRN
--- NOTE | 2018-04-18 11:37 | RAD ---
CT CHEST WO CONTRAST Indication: LUNG MASS, PRIOR SENT Exposure: One or more of the following individualized dose reduction techniques were utilized for this examination: 1. Automated exposure control 2. Adjustment of the mA and/or kV according to patient size 3. Use of iterative reconstruction technique. Comparison: September 19, 2017. Contrast: None FINDINGS: Limited evaluation of vascular structures due to the noncontrast technique. The aorta is densely calcified. The ascending aorta measures 4.3 cm diameter compatible with ectasia stable since similar slice on prior study. Hypodense nodule of the right thyroid is unchanged. No significant axillary lymph node enlargement. Small mediastinal lymph nodes are again identified and unchanged. Heart size remains enlarged. Coronary artery calcifications identified. Left upper lobe mass is again identified and appears similar in size and morphology. No definite growth is suspected. There is some linear opacities extending from the mass, also appears similar to the prior study. There is some irregular opacity in the left lower lobe laterally also similar to the previous exam. Bibasilar atelectasis and/or fibrosis is identified. The trachea and central airways are patent. Small pleural effusions, slightly greater on the left. These have increased since the prior exam. Degenerative spondylosis of the spine. There is a right subcutaneous stent or other tubular device. Limited scans through the upper abdomen demonstrate a small hyperdense mass at the upper pole left kidney new since the prior exam. Measures 9 mm diameter. IMPRESSION: 1. The left upper lobe mass and adjacent parenchymal changes appears stable since the previous examination. 2. Mild increase in small pleural effusions. 3. Irregular opacity lateral aspect of left lower lobe, may represent chronic fibrosis or scarring, given its stability, also unchanged. 4. Development of a small hyperdense nodule at the upper pole the left kidney, could represent a hemorrhagic cyst but other etiologies including soft tissue mass is possible. Renal ultrasound could further evaluate. 5. Right thyroid nodule, unchanged. Electronically signed by: Jayme Baeza MD (04/18/2018 11:34 AM) [id number]
== END | disposition home or self-care (01) ==
LOC: CT 10:12
PROVIDERS: ATTEND Internal Medicine Critical Care Medicine
DX: J90 Pleural effusion, not elsewhere classified (principal); M47.894 Other spondylosis, thoracic region; E04.1 Nontoxic single thyroid nodule; N28.89 Other specified disorders of kidney and ureter; I25.10 Atherosclerotic heart disease of native coronary artery without angina pectoris; I51.7 Cardiomegaly; I77.810 Thoracic aortic ectasia; R59.0 Localized enlarged lymph nodes
CPT/HCPCS: 71250

== ENCOUNTER 2018-04-19 17:24 | Emergency (ER) | payer MEDICARE ==
[~2018-04-19] VITALS: Ht 162.6 cm; Wt 64.9 kg
[~2018-04-19 17:24] MED LIST changes: -PRED20TA PO; -VALA1000 PO
[2018-04-19 17:40] VITALS: BP 182/79
[2018-04-19] MEDS ORDERED: predniSONE 20 MG TABLET PO ONE (18:15)
[2018-04-19] MEDS ORDERED: VALA1000 PO (18:22)
[2018-04-19] MEDS ORDERED: PRED20TA PO (18:22)
--- NOTE | 2018-04-19 18:22 | PHYS DOC ---
Past Medical History Past Medical History: Cancer, COPD, DVT, GERD, High Cholesterol, Hypertension, NE, Pneumonia, Renal Disease, Vascular Disease Additional Past Medical Histor: Lupus, colitis, sleep apnea, gout, squamous cell, DDD, Mohan's, kidney dz Past Surgical History: Angioplasty, Cholecystectomy, Hysterectomy, Lumbar Laminectomy, Oophorectomy, Pacemaker Additional Past Surgical Histo: breast bx, trigger thumb, stents to LE, renal artery stent, diverticulitis, Alcohol Use: Rarely Drug Use: None Adult General Chief Complaint Chief Complaint: Rash HPI HPI This is an 83-year-old female with a history of COPD, presenting with a burning rash over her left shoulder. Patient states she first noticed a burning feeling that began this morning, and then noticed redness and blisters over that area this afternoon. Patient states she has never had these symptoms in the past. Patient has not received a varicella vaccine in the past. Denies fevers, chills, chest pain or shortness of breath. Review of Systems Review of Systems Constitutional: Denies fever or chills [] Eyes: Denies change in visual acuity, redness, or eye pain [] HENT: Denies nasal congestion or sore throat [] Respiratory: Denies cough or shortness of breath [] Cardiovascular: Denies chest pain GI: Denies abdominal pain, nausea, vomiting, bloody stools or diarrhea [] : Denies dysuria or hematuria [] Musculoskeletal: Denies back pain or joint pain [] Integument: Reports localized burning rash Neurologic: Denies headache, focal weakness or sensory changes [] Complete systems were reviewed and found to be within normal limits, except as documented in this note. Current Medications Current Medications Current Medications Medications (Trade) Dose Ordered Sig/Regina Start Time Stop Time Status Last Admin Dose Admin Prednisone (Prednisone) 40 mg 1X ONCE 04/19/18 18:15 04/19/18 18:16 DC 04/19/18 18:37 40 MG Valacyclovir HCl (Valtrex) 1,000 mg 1X ONCE 04/19/18 18:30 04/19/18 18:31 DC 04/19/18 18:32 1,000 MG Allergies Allergies Allergies Coded Allergies Type Severity Reaction Last Updated Verified bleomycin Allergy Severe 03/14/18 Yes cyclophosphamide Allergy Severe 03/14/18 Yes doxorubicin Allergy Severe 03/14/18 Yes etoposide Allergy Severe 03/14/18 Yes ibuprofen Allergy Severe CAUSED SUDDEN SEVERE PAIN PER PT REPORT 03/14/18 Yes methotrexate Allergy Severe 03/14/18 Yes paclitaxel Allergy Severe 03/14/18 Yes vinblastine Allergy Severe 03/14/18 Yes vincristine Allergy Severe 03/14/18 Yes azithromycin Allergy Intermediate LOSS OF HEARING 03/14/18 Yes clarithromycin Allergy Intermediate "SLOWED URINE" 03/14/18 Yes codeine Allergy Intermediate 03/14/18 Yes levofloxacin Allergy Intermediate DIZZY 03/14/18 Yes metronidazole Allergy Intermediate VOMITING, DIZZY 03/14/18 Yes morphine Allergy Intermediate 03/14/18 Yes roflumilast Allergy Intermediate DIZZY 03/14/18 Yes sulfadimethoxine Allergy Intermediate 03/14/18 Yes trimethoprim Allergy Intermediate 03/14/18 Yes vancomycin Allergy Intermediate Itching 03/14/18 Yes cholestyramine Adverse Reaction Intermediate 03/14/18 Yes gabapentin Adverse Reaction Intermediate 03/14/18 Yes pantoprazole Adverse Reaction Intermediate stomach cramps 03/14/18 Yes Physical Exam Physical Exam Constitutional: No acute distress, non-toxic appearance. [] HENT: Normocephalic, atraumatic, nose normal. [] Eyes: Normal sclera, no periorbital rash, conjunctiva normal, no discharge. [] Neck: Normal range of motion, no tenderness, supple, no stridor. [] Cardiovascular: Heart rate regular rhythm, systolic murmur at lower left sternal border, non-radiating [] Lungs & Thorax: Bilateral breath sounds clear to auscultation [] Abdomen: Soft, no tenderness Skin: Unilateral vesicular rash with erythematous base over the left clavicular area. [] Back: No rash, no tenderness, no CVA tenderness. [] Extremities: Unilateral vesicular rash with erythematous base over the left clavicular area. Normal ROM. Neurologic: Alert and oriented X 3, normal motor function, normal sensory function, no focal deficits noted. [] Psychologic: Affect normal, judgement normal, mood normal. [] Current Patient Data Vital Signs Vital Signs Date Time Temp Pulse Resp B/P (MAP) Pulse Ox O2 Delivery O2 Flow Rate FiO2 04/19/18 17:40 98.3 70 16 182/79 (113) 97 Room Air 98.3 EKG EKG [] Radiology/Procedures Radiology/Procedures [] Course & Med Decision Making Course & Med Decision Making Pertinent Labs and Imaging studies reviewed. (See chart for details) History of present illness and physical exam findings consistent with shingles. This 83-year-old female presents with a vesicular rash with an erythematous base localized to the left clavicular region. Patient has not received the varicella vaccine in the past. No other symptoms. Will discharge patient home with a course of oral prednisone and valacyclovir. Patient stable for discharge with outpatient follow-up with PCP. Discussed findings and plan with patient, who acknowledges understanding and agreement. Dragon Disclaimer Dragon Disclaimer This electronic medical record was generated, in whole or in part, using a voice recognition dictation system. Departure Departure Impression: Primary Impression: Shingles Disposition: HOME, SELF-CARE Condition: STABLE Referrals: TATYANA SETHI MD (PCP) Patient Instructions: Shingles, [id number] Scripts Prednisone (PREDNISONE) 20 Mg Tablet 2 TAB PO DAILY, #8 TAB Start tomorrow, Saturday04/20/18 Prov: CHA MCDONALD DO 04/19/18 Valacyclovir Hcl (VALACYCLOVIR) 1,000 Mg Tablet 1 TAB PO TID for 7 Days, #21 TAB Prov: CHA MCDONALD DO 04/19/18 Problem Qualifiers Primary Impression: Shingles Herpes zoster complications: without complications Qualified Codes: B02.9 - Zoster without complications CHA MCDONALD DO Apr 19, 2018 18:22
[2018-04-19] MEDS ORDERED: valACYclovir 500 MG TABLET. PO ONE (18:30)
[2018-04-21] MEDS ORDERED: WARF-31 PO (17:39)
[2018-04-21] MEDS ORDERED: WARF3TAB50 PO (17:39)
== END 2018-04-19 19:15 | disposition home or self-care (01) ==
LOC: ER 17:24
DX: B02.9 Zoster without complications (principal); J44.9 Chronic obstructive pulmonary disease, unspecified; K21.9 Gastro-esophageal reflux disease without esophagitis; E78.00 Pure hypercholesterolemia, unspecified; I25.2 Old myocardial infarction; Z86.718 Personal history of other venous thrombosis and embolism; N28.9 Disorder of kidney and ureter, unspecified; I10 Essential (primary) hypertension; M10.9 Gout, unspecified; M32.9 Systemic lupus erythematosus, unspecified; Z95.5 Presence of coronary angioplasty implant and graft; Z95.0 Presence of cardiac pacemaker; Z88.1 Allergy status to other antibiotic agents; Z88.2 Allergy status to sulfonamides; Z88.5 Allergy status to narcotic agent; Z88.6 Allergy status to analgesic agent; Z88.8 Allergy status to other drugs, medicaments and biological substances
CPT/HCPCS: 99283; J7512

== ENCOUNTER → 2018-05-08 | Outpatient (CLI) | payer MEDICARE ==
[2018-04-25 16:45] VITALS: BP 147/49
[~2018-05-08] MED LIST changes: +CARV12.511 PO; -CARV12.52 PO; +HYDR-2145 PO; -HYDR25TA9 PO; +LOSA100T14 PO; -LOSA100T7 PO; +PRED20TA PO; +VALA1000 PO
--- NOTE | 2018-05-08 16:53 | RAD ---
Renal sonogram Clinical indications: Left renal mass seen on CT study. COMPARISON: CT study of the chest dated April 18, 2018. FINDINGS: The longitudinal and AP and transverse dimensions of the right kidney are 9.9 cm and 4.4 cm and 4.9 cm respectively. There is a small cyst of the superior pole of the right kidney measuring 11 mm. The longitudinal and AP and transverse dimensions of the left kidney are 10.1 cm and 5.0 cm and 3.9 cm respectively. The left kidney is poorly visualized. There is an ill-defined hypoechoic nodule of the upper pole of the left kidney which measures 12 mm. This would correspond to the CT finding. There is sound through-transmission and therefore this most likely represents a cyst but this is difficult to say for sure given the poor resolution of the left kidney by sonography. Urinary bladder is not abnormally distended. IMPRESSION: No hydronephrosis is seen on either side. Right renal cyst. 12 mm hypoechoic indeterminate nodule of the upper pole of the left kidney. Recommend continued renal sonographic follow-up in 6 months to ensure stability. Electronically signed by: Josue Epps MD (05/08/2018 4:49 PM) [facility]
== END | disposition home or self-care (01) ==
LOC: US 14:36
PROVIDERS: ATTEND Internal Medicine Critical Care Medicine
DX: N28.1 Cyst of kidney, acquired (principal)
CPT/HCPCS: 76770

== ENCOUNTER 2018-08-24 00:23 | Inpatient (IN) | payer MEDICARE ==
[~2018-08-24] VITALS: Ht 165.1 cm; Wt 63.5 kg
[~2018-08-24 00:23] MED LIST changes: +AMIT10TA PO; +AMLO10TA8 PO; +FURO40TA4 PO; +HYDR-2869 PO; +LATA2.5D3 EACHEYE; +TORS100T3 PO
[2018-08-24] MEDS ORDERED: IV NORMAL SALINE 1000ML BAG 1,000 ML IV ONE (01:15)
[2018-08-24] MEDS ORDERED: fentaNYL PF VIAL 100 MCG/2 ML VIAL IV ONE ×2 (01:15→02:45)
[2018-08-24] MEDS ORDERED: ONDANSETRON PF 4 MG/2 ML VIAL. IV ONE (01:15)
--- NOTE | 2018-08-24 01:16 | PHYS DOC ---
Past Medical History Past Medical History: Cancer, CHF, COPD, DVT, GERD, High Cholesterol, Hypertension, SD, Pneumonia, Renal Disease, Vascular Disease, Other Additional Past Medical Histor: Lupus, colitis, sleep apnea, gout, squamous cell, DDD, Mohan's,shingles Past Surgical History: Angioplasty, Cholecystectomy, Hysterectomy, Lumbar Laminectomy, Oophorectomy, Pacemaker Additional Past Surgical Histo: breast bx, trigger thumb, stents to LE, renal artery stent, diverticulitis, Alcohol Use: None Drug Use: None Adult General Chief Complaint Chief Complaint: ABDOMINAL PAIN HPI HPI Patient is a 83 year old female on brought in by AMBULANCE with abdominal pain and vomiting profusely both severe pain history limited by the patient actively vomiting on my arrival to the emergency room. After zofran patient able to relay that she "found herself on the floor" at 2330 and thinks she passed out. She then began to have severe abdominal pain and began vomiting in ED. She reports she had a very "hard" bowel movement yesterday and has not had an additional bowel movement until she began having diarrhea in ED. She also reports she feels like she isn't mentating appropriately. Patient also reports she was told at discharge from her latest hospitalization that she was on hospice, however discharge summary reveals patient was discharged home with home health. the exact social situation is somehwat unclear pt is in some distress limits history taking to some degree at this time Review of Systems Review of Systems Constitutional: Denies fever or chills []] HENT: Denies nasal congestion or sore throat [] Respiratory: Denies cough or shortness of breath [] Cardiovascular: Denies chest pain. Denies palpitations. GI: Admits abdominal pain. Admits nausea and vomiting. Admits constipation yesterday. : Denies dysuria or hematuria [] Musculoskeletal: Denies back pain or joint pain [] Integument: Denies rash or skin lesions [] Neurologic: Denies headache. Admits diffuse weakness and dizziness. All other systems were reviewed and found to be within normal limits, except as documented in this note. Current Medications Current Medications Current Medications Medications (Trade) Dose Ordered Sig/Regina Start Time Stop Time Status Last Admin Dose Admin Diphenhydramine HCl (Benadryl) 25 mg 1X ONCE 08/24/18 03:30 08/24/18 03:31 DC 08/24/18 03:31 25 MG Fentanyl Citrate (Fentanyl 2ml Vial) 50 mcg 1X ONCE 08/24/18 02:45 08/24/18 02:46 DC 08/24/18 03:23 50 MCG Ondansetron HCl (Zofran) 4 mg 1X ONCE 08/24/18 01:15 08/24/18 01:16 DC 08/24/18 01:18 4 MG Piperacillin Sod/ Tazobactam Sod (Zosyn Per Pharmacy) 1 each PRN DAILY PRN 08/24/18 03:15 UNV Piperacillin Sod/ Tazobactam Sod 2.25 gm/Sodium Chloride 50 ml @ 100 mls/hr ONCE ONCE 08/24/18 03:30 08/24/18 03:59 DC 08/24/18 03:30 100 MLS/HR Sodium Chloride 1,000 ml @ 1,000 mls/hr 1X ONCE 08/24/18 01:15 08/24/18 02:14 DC 08/24/18 01:15 1,000 MLS/HR Vancomycin HCl (Vancomycin Oral Solution) 125 mg 1X ONCE 08/24/18 03:30 08/24/18 03:31 DC 08/24/18 03:30 125 MG Allergies Allergies Allergies Coded Allergies Type Severity Reaction Last Updated Verified bleomycin Allergy Severe 04/21/18 Yes cyclophosphamide Allergy Severe 04/21/18 Yes doxorubicin Allergy Severe 04/21/18 Yes etoposide Allergy Severe 04/21/18 Yes methotrexate Allergy Severe 04/21/18 Yes paclitaxel Allergy Severe 04/21/18 Yes vinblastine Allergy Severe 04/21/18 Yes vincristine Allergy Severe 04/21/18 Yes azithromycin Allergy Intermediate LOSS OF HEARING 04/21/18 Yes clarithromycin Allergy Intermediate "SLOWED URINE" 04/21/18 Yes codeine Allergy Intermediate 04/21/18 Yes levofloxacin Allergy Intermediate DIZZY 04/21/18 Yes metronidazole Allergy Intermediate VOMITING, DIZZY 04/21/18 Yes morphine Allergy Intermediate 04/21/18 Yes roflumilast Allergy Intermediate DIZZY 04/21/18 Yes sulfadimethoxine Allergy Intermediate 04/21/18 Yes trimethoprim Allergy Intermediate 04/21/18 Yes vancomycin Allergy Intermediate Itching 04/21/18 Yes ibuprofen Adverse Reaction Severe CAUSED SUDDEN SEVERE PAIN PER PT REPORT Yes cholestyramine Adverse Reaction Intermediate 04/21/18 Yes gabapentin Adverse Reaction Intermediate 04/21/18 Yes pantoprazole Adverse Reaction Intermediate stomach cramps 04/21/18 Yes Physical Exam Physical Exam Constitutional: Well developed ILL APPEARING, actively vomiting on arrival HENT: Normocephalic, atraumatic, bilateral external ears normal, oropharynx dry , no oral exudates, nose normal. [] Eyes: PERRLA, EOMI, conjunctiva normal, no discharge. [] Neck: Normal range of motion, no tenderness, supple, no stridor. [] Cardiovascular:Heart rate regular rhythm, no murmur [] Lungs & Thorax: Bilateral breath sounds clear to auscultation [] Abdomen: Soft, diffuse tenderness greater on the left side of the abdomen, no masses, no pulsatile masses, no discoloration. Well healed vertical midline scar. pt having frequent large volume brown colored liquidy stool Skin: Warm, dry, no erythema, no rash. [] Extremities: No tenderness, no cyanosis, no clubbing, ROM intact, no edema. [] Neurologic: Alert and oriented X 3, normal motor function, normal sensory function, no focal deficits noted. [] Psychologic: Affect normal, judgement normal, mood normal. [] Current Patient Data Vital Signs Vital Signs Date Time Temp Pulse Resp B/P (MAP) Pulse Ox O2 Delivery O2 Flow Rate FiO2 08/24/18 03:30 88 18 128/70 (89) 08/24/18 02:30 96 08/24/18 00:23 97.4 Nasal Cannula 2.0 97.4 Lab Values Laboratory Tests Test 08/24/18 00:54 White Blood Count 11.9 x10^3/uL (4.0-11.0) H Red Blood Count 3.67 x10^6/uL (3.50-5.40) Hemoglobin 10.1 g/dL (12.0-15.5) L Hematocrit 32.4 % (36.0-47.0) L Mean Corpuscular Volume 88 fL (79-100) Mean Corpuscular Hemoglobin 28 pg (25-35) Mean Corpuscular Hemoglobin Concent 31 g/dL (31-37) Red Cell Distribution Width 20.8 % (11.5-14.5) H Platelet Count 222 x10^3/uL (140-400) Neutrophils (%) (Auto) 73 % (31-73) Lymphocytes (%) (Auto) 12 % (24-48) L Monocytes (%) (Auto) 9 % (0-9) Eosinophils (%) (Auto) 6 % (0-3) H Basophils (%) (Auto) 1 % (0-3) Neutrophils # (Auto) 8.6 x10^3uL (1.8-7.7) H Lymphocytes # (Auto) 1.4 x10^3/uL (1.0-4.8) Monocytes # (Auto) 1.1 x10^3/uL (0.0-1.1) Eosinophils # (Auto) 0.7 x10^3/uL (0.0-0.7) Basophils # (Auto) 0.1 x10^3/uL (0.0-0.2) Platelet Estimate Pending Prothrombin Time 13.0 SEC (11.7-14.0) Prothrombin Time INR 1.0 (0.8-1.1) Sodium Level 141 mmol/L (136-145) Potassium Level 4.0 mmol/L (3.5-5.1) Chloride Level 106 mmol/L (98-107) Carbon Dioxide Level 26 mmol/L (21-32) Anion Gap 9 (6-14) Blood Urea Nitrogen 69 mg/dL (7-20) H Creatinine 2.5 mg/dL (0.6-1.0) H Estimated GFR (Cockcroft-Gault) 18.4 BUN/Creatinine Ratio 28 (6-20) H Glucose Level 110 mg/dL (70-99) H Calcium Level 9.1 mg/dL (8.5-10.1) Total Bilirubin 0.4 mg/dL (0.2-1.0) Aspartate Amino Transferase (AST) 23 U/L (15-37) Alanine Aminotransferase (ALT) 25 U/L (14-59) Alkaline Phosphatase 80 U/L (46-116) Troponin I Quantitative < 0.017 ng/mL (0.000-0.055) Total Protein 6.1 g/dL (6.4-8.2) L Albumin 2.6 g/dL (3.4-5.0) L Albumin/Globulin Ratio 0.7 (1.0-1.7) L Lipase 201 U/L (73-393) Laboratory Tests 08/24/18 00:54 Laboratory Tests 08/24/18 00:54 EKG EKG [@0137; HR 72 bpm. Intervals WNL. Low voltage III and aVF. No ST elevation] Radiology/Procedures Radiology/Procedures [PROCEDURE: CT ABDOMEN PELVIS WO CONTRAST CT scan of the abdomen and pelvis without contrast 08/24/2018 CLINICAL HISTORY: Abdominal pain. TECHNIQUE: Unenhanced, contiguous, 5 mm axial sections were obtained through the abdomen and pelvis. One or more of the following individualized dose reduction techniques were utilized for this study: 1. Automated exposure control. 2. Adjustment of the mA and/or kV according to patient size. 3. Use of iterative reconstruction technique. FINDINGS: Images through the lung bases demonstrate mild cardiomegaly. Dependent subsegmental atelectasis is seen involving both lower lobes. The liver, spleen, pancreas, adrenal glands and right kidney are within normal limits. A 1 cm rounded area of increased attenuation is seen involving the superior pole of the left kidney. This likely represents a hemorrhagic cyst. Extensive atherosclerotic calcification abdominal aorta and its branches is noted. The abdominal aorta tapers normally. Surgical clips are seen within the gallbladder fossa consistent with a cholecystectomy. There is no evidence of bowel obstruction. No free fluid or free air is seen within the abdomen. Diffuse wall thickening of the descending and sigmoid colon is seen. Increased density is seen within the adjacent fat. These findings are consistent with a colitis. A bypass graft is seen within the subcutaneous fat of the right lateral anterior abdominal wall extending from the expected location of the right axillary artery to the right common femoral artery. A second graft extends from the distal end of this graft to the left common femoral artery. Images through the pelvis demonstrate the urinary bladder distended with urine. Calcifications are seen within the pelvis consistent with phleboliths. Scattered diverticula are seen involving the sigmoid colon. No free fluid is seen. Mild S-shaped curvature of the thoracolumbar spine is seen. Degenerative changes are seen involving the lower thoracic and throughout the lumbar spine and both hips. IMPRESSION: Diffuse wall thickening of the descending and sigmoid colon is seen. Increased density seen within the adjacent fat. These findings are consistent with a colitis. No obstruction is seen. Electronically signed by: Jama Sims MD (08/24/2018 3:02 AM) [id number] PROCEDURE: PORTABLE CHEST 1V AP portable chest radiograph 08/24/2018 Clinical History: Shortness of breath. An AP erect portable digital radiograph of the chest was obtained. Comparison study is dated 07/05/2018. A pacemaker is unchanged in position. The cardiac silhouette is mildly enlarged. Atherosclerotic calcification of the thoracic aorta is seen. The thoracic aorta is mildly tortuous. Patchy left lower lobe atelectasis and/or infiltrate is noted. No pneumothorax or pleural effusion is seen. The osseous structures are unchanged. Impression: Patchy left lower lobe atelectasis and/or infiltrate. Electronically signed by: Jama Sims MD (08/24/2018 2:42 AM) [facility] ] Course & Med Decision Making Course & Med Decision Making Pertinent Labs and Imaging studies reviewed. 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 Patient reports she awoke on the floor this evening after syncopal event and felt abdominal pain. She was weak and unable to stand when she awoke, prompting her to call EMS. On arrival in ED patient began vomiting, complaining of diffuse abdominal pain, and had several loose bowel movements. Patient's vitals are unremarkable. Physical exam reveals soft abdomen with diffuse tenderness to palpation. Labs reveal elevated WBC, elevated BNP, elevated Cr from baseline. C diff PCR pending. CT Abd/pelvis revealed colitis. D/t patient's severe abdominal pain, diarrhea, white count, and imaging revealing colitis felt patient was appropriate for admission. Discussed with Carlos who agreed, for now hydration and antibiotics (zosyn,and oral vanco). we discussed inr 1.0 for now will hold off on further anticoagulation, given risk of bleeding with colitis. also noted cxr finding perhaps some pna there, the zosyn should cover it. oral vanco ordered in ER, i reviewed with pharmacy due to minimal absorption should be okay, we will give some benadryl Amalia Disclaimer Dragon Disclaimer This electronic medical record was generated, in whole or in part, using a voice recognition dictation system. Departure Departure Impression: Primary Impression: Colitis Disposition: ADMITTED INPATIENT Admitting Physician: Luke Gonzalez Condition: STABLE Referrals: TATYANA SETHI MD (PCP) GALO PENA MD Aug 24, 2018 01:16
[2018-08-24 01:18] LABS: BASO # 0.1 x10^3/uL (0.0-0.2); BASO % 1 % (0-3); EOS # 0.7 x10^3/uL (0.0-0.7); EOS % 6 % (0-3); HEMATOCRIT 32.4 % (36.0-47.0); HEMOGLOBIN 10.1 g/dL (12.0-15.5); LYMPH # 1.4 x10^3/uL (1.0-4.8); LYMPH % 12 % (24-48); MEAN CORPUSCULAR HEMOGLOBIN 28 pg (25-35); MEAN CORPUSCULAR HGB CONC 31 g/dL (31-37); MEAN CORPUSCULAR VOLUME 88 fL (79-100); MONO # 1.1 x10^3/uL (0.0-1.1); MONO % 9 % (0-9); NEUT # 8.6 x10^3uL (1.8-7.7); NEUT % 73 % (31-73); PLATELET COUNT 222 x10^3/uL (140-400); RED BLOOD COUNT 3.67 x10^6/uL (3.50-5.40); RED CELL DISTRIBUTION WIDTH 20.8 % (11.5-14.5); WHITE BLOOD COUNT 11.9 x10^3/uL (4.0-11.0)
[2018-08-24 01:50] LABS: CALCIUM 9.1 mg/dL (8.5-10.1); CREATININE 2.5 mg/dL (0.6-1.0); GFR 18.4
[2018-08-24 02:03] LABS: ALBUMIN 2.6 g/dL (3.4-5.0); ALBUMIN/GLOBULIN RATIO 0.7 (1.0-1.7); TOTAL BILIRUBIN 0.4 mg/dL (0.2-1.0); TOTAL PROTEIN 6.1 g/dL (6.4-8.2)
--- NOTE | 2018-08-24 02:45 | RAD ---
AP portable chest radiograph 08/24/2018 Clinical History: Shortness of breath. An AP erect portable digital radiograph of the chest was obtained. Comparison study is dated 07/05/2018. A pacemaker is unchanged in position. The cardiac silhouette is mildly enlarged. Atherosclerotic calcification of the thoracic aorta is seen. The thoracic aorta is mildly tortuous. Patchy left lower lobe atelectasis and/or infiltrate is noted. No pneumothorax or pleural effusion is seen. The osseous structures are unchanged. Impression: Patchy left lower lobe atelectasis and/or infiltrate. Electronically signed by: Jama Sims MD (08/24/2018 2:42 AM) [id number]
--- NOTE | 2018-08-24 03:05 | RAD ---
CT scan of the abdomen and pelvis without contrast 08/24/2018 CLINICAL HISTORY: Abdominal pain. TECHNIQUE: Unenhanced, contiguous, 5 mm axial sections were obtained through the abdomen and pelvis. One or more of the following individualized dose reduction techniques were utilized for this study: 1. Automated exposure control. 2. Adjustment of the mA and/or kV according to patient size. 3. Use of iterative reconstruction technique. FINDINGS: Images through the lung bases demonstrate mild cardiomegaly. Dependent subsegmental atelectasis is seen involving both lower lobes. The liver, spleen, pancreas, adrenal glands and right kidney are within normal limits. A 1 cm rounded area of increased attenuation is seen involving the superior pole of the left kidney. This likely represents a hemorrhagic cyst. Extensive atherosclerotic calcification abdominal aorta and its branches is noted. The abdominal aorta tapers normally. Surgical clips are seen within the gallbladder fossa consistent with a cholecystectomy. There is no evidence of bowel obstruction. No free fluid or free air is seen within the abdomen. Diffuse wall thickening of the descending and sigmoid colon is seen. Increased density is seen within the adjacent fat. These findings are consistent with a colitis. A bypass graft is seen within the subcutaneous fat of the right lateral anterior abdominal wall extending from the expected location of the right axillary artery to the right common femoral artery. A second graft extends from the distal end of this graft to the left common femoral artery. Images through the pelvis demonstrate the urinary bladder distended with urine. Calcifications are seen within the pelvis consistent with phleboliths. Scattered diverticula are seen involving the sigmoid colon. No free fluid is seen. Mild S-shaped curvature of the thoracolumbar spine is seen. Degenerative changes are seen involving the lower thoracic and throughout the lumbar spine and both hips. IMPRESSION: Diffuse wall thickening of the descending and sigmoid colon is seen. Increased density seen within the adjacent fat. These findings are consistent with a colitis. No obstruction is seen. Electronically signed by: Jama Sims MD (08/24/2018 3:02 AM) [id number]
[2018-08-24] MEDS ORDERED: PIP/TAZO PER PHARMACY MC PRN (03:15)
[2018-08-24] MEDS ORDERED: PIPERACILLIN/TAZOBACTAM 2.25 GM in IV NORMAL SALINE 50ML 50 ML IV ONE (03:30)
[2018-08-24] MEDS ORDERED: diphenhydrAMINE 50 MG/ML VIAL IVP ONE (03:30)
[2018-08-24] MEDS ORDERED: VANCOMYCIN 125 MG/2.5 ML ORAL SOLUTION. PO ONE (03:30)
[2018-08-24] MEDS ORDERED: ONDANSETRON PF 4 MG/2 ML VIAL. IV PRN (03:45)
[2018-08-24] MEDS: fentaNYL PF VIAL 100 MCG/2 ML VIAL IV PRN ×4 (04:01→20:21)
[2018-08-24 04:10] VITALS: BP 112/49
[2018-08-24 05:30] LABS: MICROCYTOSIS SLIGHT; OVALOCYTES OCC; PLT ESTIMATE ADEQUATE (ADEQUATE)
[2018-08-24] MEDS: IV NORMAL SALINE 1000ML BAG 1,000 ML IV SCH ×3 (05:56→23:45)
[2018-08-24 07:00] VITALS: BP 115/45
[2018-08-24] MEDS: VANCOMYCIN 125 MG/2.5 ML ORAL SOLUTION. PO SCH ×5 (08:40→20:20)
[2018-08-24 11:00] VITALS: BP 114/45
[2018-08-24] MEDS ORDERED: ASPI-630 PO (13:48)
[2018-08-24] MEDS: PIPERACILLIN/TAZOBACTAM 2.25 GM in IV NORMAL SALINE 50ML 50 ML IV SCH ×2 (14:36→22:07)
--- NOTE | 2018-08-24 14:40 | PDOC ---
GENERAL General: see dictated H&P. home meds are wrong in computer and nursing is awaiting a call back from hospice to straighten this out. VITAL SIGNS Vital Signs: Vital Signs Date Time Temp Pulse Resp B/P (MAP) Pulse Ox O2 Delivery O2 Flow Rate FiO2 08/24/18 12:49 97 Nasal Cannula 3.0 08/24/18 11:00 98.0 72 18 114/45 (68) 98.0 I & O I & O Intake and Output 08/24/18 07:00 Intake Total 1000 ml Output Total 1 ml Balance 999 ml Intake Oral 0 ml IV Total 1000 ml Output Urine Total 1 ml # Bowel Movements 3 ALLERGIES Allergies: Allergies Coded Allergies Type Severity Reaction Last Updated Verified bleomycin Allergy Severe 04/21/18 Yes cyclophosphamide Allergy Severe 04/21/18 Yes doxorubicin Allergy Severe 04/21/18 Yes etoposide Allergy Severe 04/21/18 Yes methotrexate Allergy Severe 04/21/18 Yes paclitaxel Allergy Severe 04/21/18 Yes vinblastine Allergy Severe 04/21/18 Yes vincristine Allergy Severe 04/21/18 Yes azithromycin Allergy Intermediate LOSS OF HEARING 04/21/18 Yes clarithromycin Allergy Intermediate "SLOWED URINE" 04/21/18 Yes codeine Allergy Intermediate 04/21/18 Yes levofloxacin Allergy Intermediate DIZZY 04/21/18 Yes metronidazole Allergy Intermediate VOMITING, DIZZY 04/21/18 Yes morphine Allergy Intermediate 04/21/18 Yes roflumilast Allergy Intermediate DIZZY 04/21/18 Yes sulfadimethoxine Allergy Intermediate 04/21/18 Yes trimethoprim Allergy Intermediate 04/21/18 Yes vancomycin Allergy Intermediate Itching 04/21/18 Yes ibuprofen Adverse Reaction Severe CAUSED SUDDEN SEVERE PAIN PER PT REPORT Yes cholestyramine Adverse Reaction Intermediate 04/21/18 Yes gabapentin Adverse Reaction Intermediate 04/21/18 Yes pantoprazole Adverse Reaction Intermediate stomach cramps 04/21/18 Yes MEDS Medications: Current Medications Medications (Trade) Dose Ordered Sig/Regina Start Time Stop Time Status Last Admin Dose Admin Diphenhydramine HCl (Benadryl) 25 mg 1X ONCE 08/24/18 03:30 08/24/18 03:31 DC 08/24/18 03:31 25 MG Fentanyl Citrate (Fentanyl 2ml Vial) 50 mcg PRN Q1HR PRN 08/24/18 03:45 08/25/18 03:44 08/24/18 12:49 50 MCG Ondansetron HCl (Zofran) 4 mg PRN Q8HRS PRN 08/24/18 03:45 08/25/18 03:44 Piperacillin Sod/ Tazobactam Sod (Zosyn Per Pharmacy) 1 each PRN DAILY PRN 08/24/18 03:15 Piperacillin Sod/ Tazobactam Sod 2.25 gm/Sodium Chloride 50 ml @ 100 mls/hr Q8HRS 08/24/18 14:00 Sodium Chloride 1,000 ml @ 100 mls/hr Q10H 08/24/18 03:45 08/25/18 03:44 08/24/18 05:56 100 MLS/HR Vancomycin HCl (Vancomycin Oral Solution) 125 mg [id number] 08/24/18 09:00 08/24/18 11:05 125 MG LAB Lab: Laboratory Tests Test 08/24/18 00:54 08/24/18 03:26 08/24/18 06:50 White Blood Count 11.9 x10^3/uL (4.0-11.0) Red Blood Count 3.67 x10^6/uL (3.50-5.40) Hemoglobin 10.1 g/dL (12.0-15.5) Hematocrit 32.4 % (36.0-47.0) Mean Corpuscular Volume 88 fL (79-100) Mean Corpuscular Hemoglobin 28 pg (25-35) Mean Corpuscular Hemoglobin Concent 31 g/dL (31-37) Red Cell Distribution Width 20.8 % (11.5-14.5) Platelet Count 222 x10^3/uL (140-400) Neutrophils (%) (Auto) 73 % (31-73) Lymphocytes (%) (Auto) 12 % (24-48) Monocytes (%) (Auto) 9 % (0-9) Eosinophils (%) (Auto) 6 % (0-3) Basophils (%) (Auto) 1 % (0-3) Neutrophils # (Auto) 8.6 x10^3uL (1.8-7.7) Lymphocytes # (Auto) 1.4 x10^3/uL (1.0-4.8) Monocytes # (Auto) 1.1 x10^3/uL (0.0-1.1) Eosinophils # (Auto) 0.7 x10^3/uL (0.0-0.7) Basophils # (Auto) 0.1 x10^3/uL (0.0-0.2) Platelet Estimate Adequate (ADEQUATE) Microcytosis Slight Macrocytosis Slight Ovalocytes Occ Prothrombin Time 13.0 SEC (11.7-14.0) Prothromb Time International Ratio 1.0 (0.8-1.1) Sodium Level 141 mmol/L (136-145) Potassium Level 4.0 mmol/L (3.5-5.1) Chloride Level 106 mmol/L (98-107) Carbon Dioxide Level 26 mmol/L (21-32) Anion Gap 9 (6-14) Blood Urea Nitrogen 69 mg/dL (7-20) Creatinine 2.5 mg/dL (0.6-1.0) Estimated GFR (Cockcroft-Gault) 18.4 BUN/Creatinine Ratio 28 (6-20) Glucose Level 110 mg/dL (70-99) Calcium Level 9.1 mg/dL (8.5-10.1) Total Bilirubin 0.4 mg/dL (0.2-1.0) Aspartate Amino Transf (AST/SGOT) 23 U/L (15-37) Alanine Aminotransferase (ALT/SGPT) 25 U/L (14-59) Alkaline Phosphatase 80 U/L (46-116) Troponin I Quantitative < 0.017 ng/mL (0.000-0.055) Total Protein 6.1 g/dL (6.4-8.2) Albumin 2.6 g/dL (3.4-5.0) Albumin/Globulin Ratio 0.7 (1.0-1.7) Lipase 201 U/L (73-393) Clostridium difficile Toxin B Gene Negative (Negative) Lactic Acid Level 1.2 mmol/L (0.4-2.0) APPLPIETER MD Aug 24, 2018 14:40
[2018-08-24] MEDS ORDERED: AZEL137S3 NS (14:51)
[2018-08-24 15:00] VITALS: BP 123/56
--- NOTE | 2018-08-24 15:09 | HP ---
ADMIT DATE: 08/24/2018 CHIEF COMPLAINT AND HISTORY OF PRESENT ILLNESS: This 83-year-old white female, patient of Dr. Luke Gonzalez is known to me from prior hospitalizations. The patient according to her has been placed on hospice recently. She started off with a day or so of hard stools and then followed by being awoken on the night prior to admission with severe crampy abdominal pain necessitating Emergency Room visit where she was found on CT scanning to have colitis with diarrhea, vomiting, severe pain in the Emergency Room and admitted for the same. PAST MEDICAL HISTORY: Extensive including cancer, congestive heart failure, COPD, GERD, DVT, hyperlipidemia, hypertension, CO, prior pneumonias, renal disease, vascular disease with lupus, history of colitis, obstructive sleep apnea, gout, Mohan's esophagitis, shingles. PAST SURGICAL HISTORY: She has had prior cholecystectomies, hysterectomies, lumbar laminectomies, oophorectomy, pacemaker placement, trigger thumb, breast biopsies, stenting to lower extremities as well as renal artery . MEDICATIONS: Brought with the patient, listed on the computer and have been addressed. ALLERGIES: Her allergy list is extensive as listed on the computer. SOCIAL HISTORY: She is nonsmoker, nondrinker, does not use drugs. FAMILY HISTORY: Noncontributory. REVIEW OF SYSTEMS: As that as mentioned above. In addition, she complains bitterly of feeling extremely weak with no energy for quite some time. Otherwise, she denies fevers or chills. Denies any hematemesis, melena, hematochezia, chest pain, shortness of breath, cough, back or joint pain, rash, new skin lesions, or headache. PHYSICAL EXAMINATION: GENERAL: She is a well-developed, well-nourished, ill-appearing white female in no acute distress by the time of my examination. VITAL SIGNS: Stable and she is afebrile. HEAD, EYES, EARS, NOSE AND THROAT: Remarkable for some dryness of mucous membranes. NECK: Supple, without adenopathy or thyromegaly. CHEST: Reveals decreased breath sounds, but clear. HEART: Regular rate and rhythm without S3, S4, or murmur. ABDOMEN: Diffusely mildly tenderness, more so on the left than the right with somewhat increased bowel sounds. EXTREMITIES: Without cyanosis, clubbing or edema. NEUROLOGIC: Nonfocal. LABORATORY DATA: Includes white count of 11,900 with left shift. She has a hemoglobin of 10.1, normal red cell indices and increased RDW, BUN is 69, creatinine 2.5. Electrolytes were within normal limits. Albumin is low at 2.6. Lactic acid level was 1.2. Stool for C. diff is negative. INR is 1. Chest x-ray shows patchy left lower lobe atelectasis or infiltrate and CT scanning of the abdomen and pelvis shows diffuse wall thickening of the descending and sigmoid colon with increased density seen in the adjacent fat consistent with colitis, no obstruction was seen. IMPRESSION: Colitis with nausea and vomiting, severe abdominal pain and the patient with multiple other problems listed above. PLAN: The patient has been admitted. We will have some ongoing hydration as well as IV antibiotics. PIETER ESCALONA MD DR: REBECCA/dianelys JOB#: [id number] / [id number]
[2018-08-24 19:00] VITALS: BP 117/47
[2018-08-24] MEDS: LACTOBACILLUS RHAMNOSUS GG 1 CAPSULE. PO SCH (20:20)
[2018-08-24 22:59] VITALS: BP 110/43
[2018-08-25 03:00] VITALS: BP 122/47
[2018-08-25] MEDS: PIPERACILLIN/TAZOBACTAM 2.25 GM in IV NORMAL SALINE 50ML 50 ML IV SCH ×3 (06:55→21:45)
[2018-08-25 07:00] VITALS: BP 127/48
[2018-08-25] MEDS ORDERED: MAGNESIUM HYDROXIDE 2,400 MG/30 ML ORAL.SUSP. PO PRN (08:45)
[2018-08-25] MEDS ORDERED: ALLOPURINOL 300 MG TABLET. PO SCH (09:00)
--- NOTE | 2018-08-25 09:00 | PDOC ---
Provider Note Provider Note less pain but sluice tender LLQ- no temp, bp lowish- will resume coreg, asa, she declines warf now - colitis likely ischemic as abrup onset- cont zosyn,ad v diet, remains dnr on home hospice- follow pam, op creat 1.5, gfr 33 FE PEÑALOZA MD Aug 25, 2018 09:00
[2018-08-25] MEDS ORDERED: MECLIZINE HCL 12.5 MG TABLET. PO PRN (09:15)
[2018-08-25] MEDS: CARVEDILOL 12.5 MG TABLET. PO SCH ×2 (09:19→17:54)
[2018-08-25] MEDS: LACTOBACILLUS RHAMNOSUS GG 1 CAPSULE. PO SCH ×2 (09:19→21:44)
[2018-08-25] MEDS ORDERED: POTASSIUM CL 20MEQ D5-0.45NACL 1,000 ML IV ONE (09:30)
[2018-08-25] MEDS: ACETAMINOPHEN 325 MG TABLET. PO PRN ×2 (09:30→17:48)
[2018-08-25] MEDS: ASPIRIN CHEWABLE 81 MG TABLET. PO SCH (09:31)
[2018-08-25] MEDS: PANTOPRAZOLE 40 MG TABLET.DR. PO SCH (09:31)
--- NOTE | 2018-08-25 10:27 | EKG ---
[facility] [address] [place] [address] Test Date: 2018-08-24 Test Time: 01:37:48 Pat Name: SLIME MOTA Department: Room: 428 1 Gender: F Community Associate: : 1935 Requested By: GALO PENA Order Number: [id number] Reading MD: Tommy Mays MD Measurements Intervals [place] Rate: 72 P: 12 TX: 354 QRS: 12 QRSD: 86 T: 77 QT: 414 QTc: 460 Interpretive Statements SINUS RHYTHM PROLONGED TX INTERVAL LOW LIMB LEAD VOLTAGE QRS(T) CONTOUR ABNORMALITY CONSISTENT WITH ANTEROSEPTAL INFARCT AGE UNDETERMINED T ABNORMALITY IN ANTERIOR LEADS LATERAL LEADS ABNORMAL ECG Electronically Signed On 08-25-2018 10:51:14 CDT by Tommy Mays MD
[2018-08-25 11:00] VITALS: BP 120/45
[2018-08-25 11:05] LABS: CALCIUM 8.7 mg/dL (8.5-10.1); CREATININE 2.3 mg/dL (0.6-1.0); GFR 20.3; POTASSIUM 3.6 mmol/L (3.5-5.1)
[2018-08-25] MEDS: IPRATRPIUM/ALBUTEROL 0.5/2.5MG 3 ML NEBU. NEB SCH ×3 (12:00→20:26)
[2018-08-25] MEDS: BUDESONIDE 0.5 MG/2 ML NEBU. NEB SCH ×2 (12:02→20:26)
[2018-08-25 15:00] VITALS: BP 132/51
[2018-08-25] MEDS ORDERED: HYDROcodone/APAP 5/325MG 1 TAB TABLET PO PRN (18:15)
[2018-08-25 19:00] VITALS: BP 153/55
[2018-08-25] MEDS: LATANOPROST 0.005% OPHTH SOLUTION 2.5ML BOTTLE. OU SCH (21:45)
[2018-08-25] MEDS: AMITRIPTYLINE HCL 10 MG TABLET. PO SCH (21:45)
[2018-08-25 23:00] VITALS: BP 154/54
[2018-08-26 03:00] VITALS: BP 149/54
[2018-08-26] MEDS: PANTOPRAZOLE 40 MG TABLET.DR. PO SCH (05:39)
[2018-08-26] MEDS: PIPERACILLIN/TAZOBACTAM 2.25 GM in IV NORMAL SALINE 50ML 50 ML IV SCH ×3 (05:39→22:14)
[2018-08-26 07:00] VITALS: BP 139/56
[2018-08-26] MEDS: BUDESONIDE 0.5 MG/2 ML NEBU. NEB SCH ×2 (07:59→20:04)
[2018-08-26] MEDS: IPRATRPIUM/ALBUTEROL 0.5/2.5MG 3 ML NEBU. NEB SCH ×4 (07:59→20:04)
[2018-08-26 08:05] LABS: CALCIUM 8.7 mg/dL (8.5-10.1); CREATININE 2.1 mg/dL (0.6-1.0); GFR 22.5; POTASSIUM 4.1 mmol/L (3.5-5.1)
[2018-08-26] MEDS ORDERED: fentaNYL PF VIAL 100 MCG/2 ML VIAL IV PRN (08:30)
--- NOTE | 2018-08-26 08:36 | PDOC ---
Provider Note Provider Note vss, no temp, bp better , good output- still mod LLQ tenderness, did not tolerate norco so try tramadol, prn fent- renal fx better , cont iv fluid, zosyn as L colon tries to recover from presumed ischemic injury FE PEÑALOZA MD Aug 26, 2018 08:36
[2018-08-26] MEDS ORDERED: POTASSIUM CL 20MEQ D5-0.45NACL 1,000 ML IV ONE (09:00)
[2018-08-26] MEDS: ASPIRIN CHEWABLE 81 MG TABLET. PO SCH (10:02)
[2018-08-26] MEDS: LACTOBACILLUS RHAMNOSUS GG 1 CAPSULE. PO SCH ×2 (10:02→20:33)
[2018-08-26] MEDS: CARVEDILOL 12.5 MG TABLET. PO SCH ×2 (10:03→16:09)
[2018-08-26] MEDS: traMADol 50 MG TABLET PO PRN ×3 (10:04→22:15)
[2018-08-26 11:00] VITALS: BP 166/57
[2018-08-26 15:00] VITALS: BP 117/72
[2018-08-26 19:00] VITALS: BP 116/68
[2018-08-26] MEDS: LATANOPROST 0.005% OPHTH SOLUTION 2.5ML BOTTLE. OU SCH (20:33)
[2018-08-26] MEDS: AMITRIPTYLINE HCL 10 MG TABLET. PO SCH (20:33)
[2018-08-26 23:00] VITALS: BP 156/59
[2018-08-26] MEDS ORDERED: POTASSIUM CL 20MEQ D5-0.45NACL 1,000 ML IV SCH (23:30)
[2018-08-27 03:00] VITALS: BP 169/61
[2018-08-27 05:17] LABS: CALCIUM 8.7 mg/dL (8.5-10.1); CREATININE 1.8 mg/dL (0.6-1.0); GFR 26.9; POTASSIUM 4.4 mmol/L (3.5-5.1)
[2018-08-27] MEDS: traMADol 50 MG TABLET PO PRN (05:30)
[2018-08-27] MEDS: PANTOPRAZOLE 40 MG TABLET.DR. PO SCH (05:30)
[2018-08-27] MEDS: PIPERACILLIN/TAZOBACTAM 2.25 GM in IV NORMAL SALINE 50ML 50 ML IV SCH (05:31)
[2018-08-27 07:00] VITALS: BP 161/61
[2018-08-27] MEDS: IPRATRPIUM/ALBUTEROL 0.5/2.5MG 3 ML NEBU. NEB SCH ×2 (07:34→11:42)
[2018-08-27] MEDS: BUDESONIDE 0.5 MG/2 ML NEBU. NEB SCH (07:34)
--- NOTE | 2018-08-27 08:33 | PDOC ---
Provider Note Provider Note [id number] FE PEÑALOZA MD Aug 27, 2018 08:33
[2018-08-27] MEDS: ASPIRIN CHEWABLE 81 MG TABLET. PO SCH (09:11)
[2018-08-27] MEDS: CARVEDILOL 12.5 MG TABLET. PO SCH (09:11)
[2018-08-27] MEDS: LACTOBACILLUS RHAMNOSUS GG 1 CAPSULE. PO SCH (09:11)
[2018-08-27 11:00] VITALS: BP 110/62
--- NOTE | 2018-08-27 16:01 | DS ---
DATE OF DISCHARGE: 08/27/2018 HOSPITAL SUMMARY: An 83-year-old was admitted with abrupt onset of left lower quadrant pain with evidence of colitis of the descending colon on CT scan. The CBC and chemistry profile were unremarkable except for a baseline creatinine of 2.3, which improved with hydration to a BUN of 29, creatinine 1.8. C. diff toxin was negative and blood cultures had no growth. She was treated as in a presumed ischemic colitis with IV fluids and Zosyn and pain has gradually diminished. She is ready to try regular diet today. She will be discharged later today if tolerating regular food, with the use of tramadol for pain. FINAL DIAGNOSES: 1. Acute ischemic colitis of the left colon. 2. Acute kidney injury, improved. OPERATIONS, PROCEDURES AND COMPLICATIONS: None. CONSULTATIONS: None. DISPOSITION: Continue home meds the same. She has decided to stop taking many of her home meds as she is on hospice, and she is off warfarin and taken only baby aspirin. We will give her 3 more days of Augmentin 875 twice a day and use of tramadol 50 mg t.i.d. p.r.n. for pain. She is on home hospice. Office followup with Dr. Ross and myself in 1 week. Prognosis is extremely guarded as ischemic colitis or other ischemic injuries could reoccur. FE PEÑALOZA MD DR: BUCK/dianelys JOB#: [id number] / [id number]
== END 2018-08-27 15:00 | disposition hospice, home (50) | DRG 393 ==
LOC: ER 00:23 → 4 NORTH 03:30
PROVIDERS: ADMIT Family Medicine; ATTEND Family Medicine
PROC: 5A09357 Assistance with Respiratory Ventilation, Less than 24 Consecutive Hours, Continuous Positive Airway Pressure (ICD-10-PCS; principal; 2018-08-25)
PROC: 5A09357 Assistance with Respiratory Ventilation, Less than 24 Consecutive Hours, Continuous Positive Airway Pressure (ICD-10-PCS; 2018-08-26)
PROC: 5A09357 Assistance with Respiratory Ventilation, Less than 24 Consecutive Hours, Continuous Positive Airway Pressure (ICD-10-PCS; 2018-08-27)
DX: K55.039 Acute (reversible) ischemia of large intestine, extent unspecified (principal); E43 Unspecified severe protein-calorie malnutrition; N17.9 Acute kidney failure, unspecified; I11.0 Hypertensive heart disease with heart failure; I50.9 Heart failure, unspecified; M10.9 Gout, unspecified; J44.9 Chronic obstructive pulmonary disease, unspecified; E78.00 Pure hypercholesterolemia, unspecified; E78.5 Hyperlipidemia, unspecified; K21.9 Gastro-esophageal reflux disease without esophagitis; Z66 Do not resuscitate; Z88.6 Allergy status to analgesic agent; Z88.1 Allergy status to other antibiotic agents; Z88.2 Allergy status to sulfonamides; Z88.8 Allergy status to other drugs, medicaments and biological substances; Z91.018 Allergy to other foods; Z91.048 Other nonmedicinal substance allergy status; Z90.710 Acquired absence of both cervix and uterus; Z95.0 Presence of cardiac pacemaker; Z87.01 Personal history of pneumonia (recurrent); Z86.718 Personal history of other venous thrombosis and embolism; Z79.01 Long term (current) use of anticoagulants; I25.2 Old myocardial infarction; Z79.899 Other long term (current) drug therapy; Z90.721 Acquired absence of ovaries, unilateral
CPT/HCPCS: 36415; 71045; 74176; 80048; 80053; 83605; 83690; 84484; 85025; 85610; 87040; 87493; 93005; 94640; 94760; 96361; 96365; 96375; J1200; J2405; J2543; J3010; J7030; J7620; J7626; 99285-25

== ENCOUNTER 2019-08-15 20:06 | Inpatient (IN) | payer MEDICARE ==
[~2019-08-15] VITALS: Ht 162.6 cm; Wt 58.6 kg
[~2019-08-15 20:06] MED LIST changes: +ASPI-630 PO; +AZEL137S3 NS; +MECL-75 PO; -MECL25TA3 PO; +OMEP40CA45 PO; -OMEP40CA5 PO; -PANT40TA3 PO; +PANT40TA77 PO; -VALA1000 PO; +VALA10008 PO
[2019-08-15] MEDS ORDERED: IV NORMAL SALINE 1000ML BAG 1,000 ML IV SCH (20:37)
--- NOTE | 2019-08-15 20:37 | PHYS DOC ---
Past Medical History Past Medical History: Cancer, CHF, COPD, DVT, GERD, High Cholesterol, Hypertension, SC, Pneumonia, Renal Disease, Vascular Disease, Other Additional Past Medical Histor: Lupus, colitis, sleep apnea, gout, squamous cell, DDD, Mohan's,shingles Past Surgical History: Angioplasty, Cholecystectomy, Hysterectomy, Lumbar Laminectomy, Oophorectomy, Pacemaker Additional Past Surgical Histo: breast bx, trigger thumb, stents to LE, renal artery stent, diverticulitis, Smoking Status: Former Smoker Alcohol Use: None Drug Use: None Adult General Chief Complaint Chief Complaint: MECHANICAL FALL HPI HPI 84-year-old female with underlying history of congestive heart failure, COPD, hypertension, hyperlipidemia, hospice secondary to CHF presents to the emergency department after slipping off of her couch. She states she's had abruptly 45 minutes ago. She denies any loss of consciousness or head injury at that time. Patient does state however she did fall over the last week and did hit her head. She complains of diarrhea multiple episodes, cough, weakness - generalized, left hip pain. Nothing makes her symptoms worse, nothing makes her symptoms better. She describes dizziness when she changes position. She has not been eating very well. Patient denies any fever. Review of Systems Review of Systems Constitutional: Denies fever or chills [] Respiratory: Cough Cardiovascular: No additional information not addressed in HPI [] GI: Denies abdominal pain, nausea, vomiting, other than diarrhea [] : Denies dysuria or hematuria [] Musculoskeletal: Thoracic back pain, lumbosacral back pain on the tenderness to left hip, tenderness to posterior scalp Integument: Denies rash or skin lesions [] Neurologic: Denies headache, focal weakness or sensory changes [] All other systems were reviewed and found to be within normal limits, except as documented in this note. Current Medications Current Medications Current Medications Medications (Trade) Dose Ordered Sig/Regina Start Time Stop Time Status Last Admin Dose Admin Acetaminophen (Tylenol) 650 mg PRN Q4HRS PRN 08/15/19 22:15 08/16/19 22:14 Fentanyl Citrate (Fentanyl 2ml Vial) 25 mcg 1X ONCE 08/15/19 20:45 08/15/19 20:46 DC 08/15/19 19:20 12.5 MCG Hydralazine HCl (Apresoline Inj) 10 mg PRN Q6HRS PRN 08/15/19 22:30 Ondansetron HCl (Zofran) 4 mg PRN Q8HRS PRN 08/15/19 22:15 08/16/19 22:14 Sodium Chloride 1,000 ml @ 1,000 mls/hr Q1H 08/15/19 20:37 08/15/19 21:36 DC 08/15/19 20:40 1,000 MLS/HR Allergies Allergies Allergies Coded Allergies Type Severity Reaction Last Updated Verified bleomycin Allergy Severe 12/15/18 Yes cyclophosphamide Allergy Severe 12/15/18 Yes doxorubicin Allergy Severe 12/15/18 Yes etoposide Allergy Severe 12/15/18 Yes methotrexate Allergy Severe 12/15/18 Yes paclitaxel Allergy Severe 12/15/18 Yes vinblastine Allergy Severe 12/15/18 Yes vincristine Allergy Severe 12/15/18 Yes azithromycin Allergy Intermediate LOSS OF HEARING 12/15/18 Yes clarithromycin Allergy Intermediate "SLOWED URINE" 12/15/18 Yes codeine Allergy Intermediate 12/15/18 Yes levofloxacin Allergy Intermediate DIZZY 12/15/18 Yes metronidazole Allergy Intermediate VOMITING, DIZZY 12/15/18 Yes morphine Allergy Intermediate 12/15/18 Yes roflumilast Allergy Intermediate DIZZY 12/15/18 Yes sulfadimethoxine Allergy Intermediate 12/15/18 Yes trimethoprim Allergy Intermediate 12/15/18 Yes vancomycin Allergy Intermediate Itching 12/15/18 Yes ibuprofen Adverse Reaction Severe CAUSED SUDDEN SEVERE PAIN PER PT REPORT 12/15/18 Yes cholestyramine Adverse Reaction Intermediate 12/15/18 Yes gabapentin Adverse Reaction Intermediate 12/15/18 Yes pantoprazole Adverse Reaction Intermediate stomach cramps 12/15/18 Yes Physical Exam Physical Exam Constitutional: Well developed, well nourished, mild distress 2/2 pain, non- toxic appearance. [] HENT: Normocephalic, posterior scalp with redness and pain, no hematoma, bilateral external ears normal, oropharynx moist, no oral exudates, nose normal. [] Eyes: PERRLA, EOMI, conjunctiva normal, no discharge. [] Neck: Normal range of motion, no tenderness, supple, no stridor. [] Cardiovascular:Heart rate regular rhythm, no murmur [] Lungs & Thorax: Bilateral breath sounds clear to auscultation [] Abdomen: Bowel sounds normal, soft, no tenderness, no masses, no pulsatile masses. [] Skin: Warm, dry, no erythema, no rash. [] Back: tendernss thoracic, l/s region, left hip pain, no CVA tenderness Extremities: No tenderness, no edema. [] Neurologic: Alert and oriented X 3, no focal deficits noted. [] Psychologic: Affect normal, judgement normal, mood normal. [] Current Patient Data Vital Signs Vital Signs Date Time Temp Pulse Resp B/P (MAP) Pulse Ox O2 Delivery O2 Flow Rate FiO2 08/15/19 20:06 98.1 67 18 192/85 (120) 94 Room Air 98.1 08/15/19 19:20 2.0 Lab Values Laboratory Tests Test 08/15/19 20:35 08/15/19 21:55 08/15/19 22:07 White Blood Count 12.1 x10^3/uL (4.0-11.0) H Red Blood Count 4.06 x10^6/uL (3.50-5.40) Hemoglobin 12.2 g/dL (12.0-15.5) Hematocrit 37.8 % (36.0-47.0) Mean Corpuscular Volume 93 fL (79-100) Mean Corpuscular Hemoglobin 30 pg (25-35) Mean Corpuscular Hemoglobin Concent 32 g/dL (31-37) Red Cell Distribution Width 18.2 % (11.5-14.5) H Platelet Count 216 x10^3/uL (140-400) Neutrophils (%) (Auto) 78 % (31-73) H Lymphocytes (%) (Auto) 11 % (24-48) L Monocytes (%) (Auto) 9 % (0-9) Eosinophils (%) (Auto) 1 % (0-3) Basophils (%) (Auto) 1 % (0-3) Neutrophils # (Auto) 9.4 x10^3/uL (1.8-7.7) H Lymphocytes # (Auto) 1.4 x10^3/uL (1.0-4.8) Monocytes # (Auto) 1.1 x10^3/uL (0.0-1.1) Eosinophils # (Auto) 0.1 x10^3/uL (0.0-0.7) Basophils # (Auto) 0.1 x10^3/uL (0.0-0.2) Sodium Level 145 mmol/L (136-145) Potassium Level 4.0 mmol/L (3.5-5.1) Chloride Level 109 mmol/L (98-107) H Carbon Dioxide Level 30 mmol/L (21-32) Anion Gap 6 (6-14) Blood Urea Nitrogen 25 mg/dL (7-20) H Creatinine 1.5 mg/dL (0.6-1.0) H Estimated GFR (Cockcroft-Gault) 33.2 BUN/Creatinine Ratio 17 (6-20) Glucose Level 100 mg/dL (70-99) H Calcium Level 8.8 mg/dL (8.5-10.1) Total Bilirubin 0.3 mg/dL (0.2-1.0) Aspartate Amino Transferase (AST) 12 U/L (15-37) L Alanine Aminotransferase (ALT) 11 U/L (14-59) L Alkaline Phosphatase 79 U/L (46-116) Creatine Kinase 87 U/L (26-192) Total Protein 4.5 g/dL (6.4-8.2) L Albumin 2.0 g/dL (3.4-5.0) L Albumin/Globulin Ratio 0.8 (1.0-1.7) L Urine Collection Type Unknown Urine Color Yellow Urine Clarity Clear Urine pH 6.0 (<5.0-8.0) Urine Specific [place] 1.015 (1.000-1.030) Urine Protein >=300 mg/dL (NEG-TRACE) Urine Glucose (UA) Negative mg/dL (NEG) Urine Ketones (Stick) Negative mg/dL (NEG) Urine Blood Negative (NEG) Urine Nitrite Negative (NEG) Urine Bilirubin Negative (NEG) Urine Urobilinogen Dipstick 0.2 mg/dL (0.2 mg/dL) Urine Leukocyte Esterase Negative (NEG) Urine RBC 1-2 /HPF (0-2) Urine WBC 1-4 /HPF (0-4) Urine Squamous Epithelial Cells Occ /LPF Urine Amorphous Sediment Present /HPF Urine Bacteria 0 /HPF (0-FEW) Influenza Type A Antigen Negative (NEGATIVE) Influenza Type B Antigen Negative (NEGATIVE) Laboratory Tests 08/15/19 20:35 Laboratory Tests 08/15/19 20:35 EKG EKG []EKG interpretation time 2025, normal sinus rhythm, left axis deviation, no evidence of ST elevation SC appreciated. Radiology/Procedures Radiology/Procedures [facility] [address] [place] [address] IMAGING REPORT Signed PATIENT: SLIME MOTA ACCOUNT: [id number] : 1935 LOCATION: ER AGE: 84 SEX: F EXAM STATUS: REG ER ORD. PHYSICIAN: DESHAUN ALANIS MD REASON: fall, no loc, head injury PROCEDURE: CT HEAD WO CONTRAST CT Head W/O Contrast: History: Fall, head injury Comparison: April 22, 2018 Axial images were obtained without contrast. There is moderate diffuse atrophy. There is no mass effect, extraaxial fluid collections or hydrocephalus. There is no gross bleed. Marked, diffuse periventricular and subcortical white matter hypoattenuation is seen. There is no focal loss of alonso-white matter distinction to suggest acute ischemia, i.e. stroke. There is prior right-sided mastoidectomy. Impression: No acute findings. PQRS Compliance Statement: One or more of the following individualized dose reduction techniques were utilized for this examination: 1. Automated exposure control 2. Adjustment of the mA and/or kV according to patient size 3. Use of iterative reconstruction technique Electronically signed by: Lourdes Crespo III, MD (08/15/2019 9:10 PM) [id number] DICTATED and SIGNED BY: LOURDES CRESPO III, MD DATE: 08/15/192109 [] [facility] [address] [place] [address] IMAGING REPORT Signed PATIENT: SLIME MOTA ACCOUNT: [id number] : 1935 LOCATION: ER AGE: 84 SEX: F EXAM STATUS: REG ER ORD. PHYSICIAN: DESHAUN ALANIS MD REASON: midline thoracic/lumbosacral tenderness PROCEDURE: CT LUMBAR SPINE WO CONTRAST EXAM: CT thoracic and lumbar spine without contrast. HISTORY: Thoracolumbar pain and tenderness. TECHNIQUE: CT of the thoracic and lumbar spine was performed without intravenous contrast. One or more of the following individualized dose reduction techniques were utilized for this examination: 1. Automated exposure control. 2. Adjustment of the mA and/or kV according to patient size. 3. Use of iterative reconstruction technique. COMPARISON: 08/24/2018. 09/13/2016. FINDINGS: Masslike consolidation in the suprahilar left upper lobe measures 3.1 x 2.7 cm transaxially. This is been present chronically and may reflect posttreatment change in the setting of lung cancer or architectural distortion in the setting of remote inflammation. There is moderate centrilobular emphysema. Interstitial line thickening is consistent with mild pulmonary edema. There are small bilateral pleural effusions. Pacemaker leads are partially visualized. There are diffuse bulky atherosclerotic calcifications throughout the visualized aorta. These result in abdominal aortic stenosis proximally. A right renal artery stent is noted. Bilateral common iliac and left external iliac stents are also noted. Patency cannot be assessed without contrast. The gallbladder is surgically absent. The uterus is surgically absent. There are changes of pelvic floor relaxation. There is wall thickening of the sigmoid colon in a region of severe diverticulosis. This appears chronic. There is mild left hydronephrosis and hydroureter to the level where the ureter passes adjacent to the sigmoid colon. There is a small amount of free pelvic fluid. There is a mild thoracic dextrocurvature. No fractures are identified. Osteopenia appears moderate. Intervertebral disc heights are maintained. There is a moderate central disc protrusion at T7-8, resulting in mild central canal stenosis. There are also small disc herniations centrally at T8-9 and in the right paracentral distribution at T10-11. The right lateral recess is at least moderately narrowed at T9-10. No lumbar fractures are identified. There is a minimal lower lumbar dextrocurvature. Intervertebral disc heights are maintained for patient age with diffuse mild to moderate endplate remodeling. At L1-2, there is a moderate posterior disc bulge. There is no clear stenosis. At L2-3, there is a small posterior disc bulge. Facet and ligamentum flavum hypertrophy is moderate. Central canal stenosis is moderate. Neural foraminal stenosis is mild on the right. At L3-4, there is a moderate posterior disc bulge. Facet and ligamentum flavum hypertrophy is moderate. Central canal stenosis is moderate. Neural foraminal stenosis is mild on the left. At L4-5, there is a moderate posterior disc bulge. Facet osteoarthritis is moderate to severe on the left. Ligamentum flavum hypertrophy is moderate bilaterally. Central canal stenosis is moderate to severe. Neural foraminal stenosis is moderate on the left. At L5-S1, there is a moderate posterior disc bulge. Facet osteoarthritis is mild bilaterally. Neural foraminal stenosis is mild on the left and moderate on the right. IMPRESSION: 1. No fracture or malalignment within the thoracic or lumbar spine. 2. Disc herniations and degenerative changes result in central canal stenosis which is up to moderate/severe at L4-5 and moderate from L2 through L4. Additional disc herniations result in mild central canal stenosis at T7-8 and moderate appearing right lateral recess stenosis at T10-11. 3. 3.1 cm left suprahilar chronic masslike consolidation. Correlate for posttreatment changes in the setting of prior lung cancer versus old inflammatory change. 4. Findings consistent with volume overload with mild pulmonary edema, small bilateral pleural effusions and small ascites. 5. Moderate centrilobular emphysema. 6. Severe appearing proximal abdominal aortic stenosis. 7. Mild left hydronephrosis. The point of obstruction appears to be at the point where the ureter passes the sigmoid colon which is thickened in the setting of chronic diverticular disease. Electronically signed by: Elmira Zamarripa MD (08/15/2019 9:36 PM) [facility] DICTATED and SIGNED BY: CHANA ZAMARRIPA MD DATE: 08/15/192135 [facility] [address] [place] [address] IMAGING REPORT Signed PATIENT: SLIME MOTA ACCOUNT: [id number] : 1935 LOCATION: ER AGE: 84 SEX: F EXAM STATUS: REG ER ORD. PHYSICIAN: DESHAUN ALANIS MD REASON: left hip pain after fall PROCEDURE: HIP LEFT 2V WITH PELVIS EXAM: HIP LEFT 2V WITH PELVIS. HISTORY: Left hip pain after a fall. COMPARISON: None. FINDINGS: No fractures are identified. The joint spaces and alignment of both hips are maintained. Biiliac stents, vascular clips and atherosclerotic calcifications are noted. Stool throughout the colon is consistent with constipation. IMPRESSION: 1. No fracture. 2. Correlate for constipation. Electronically signed by: Elmira Zamarripa MD (08/15/2019 9:47 PM) [facility] DICTATED and SIGNED BY: CHANA ZAMARRIPA MD DATE: 08/15/192146 Course & Med Decision Making Course & Med Decision Making Pertinent Labs and Imaging studies reviewed. (See chart for details) []84-year-old female with underlying history of congestive heart failure, COPD, hypertension, hyperlipidemia, hospice secondary to CHF presents to the emergency department after slipping off of her couch. She states she's had abruptly 45 minutes ago. She denies any loss of consciousness or head injury at that time. Patient does state however she did fall over the last week and did hit her head. She complains of diarrhea multiple episodes, cough, weakness - generalized, left hip pain. Nothing makes her symptoms worse, nothing makes her symptoms better. She describes dizziness when she changes position. She has not been eating very well. Patient denies any fever. Labs/Imaging reviewed No evidence of acute fracture appreciated Influenza reviewed Plan gentle hydration in ER will not provide a significant amount of fluid given CHF Hospice DNR/DNI Call placed to HOSPICE this observation should not affect her HOSPICE status Discussed with DR. PEÑALOZA [id number] Dragon Disclaimer Dragon Disclaimer This electronic medical record was generated, in whole or in part, using a voice recognition dictation system. Departure Departure Impression: Primary Impression: Fall Additional Impressions: Diarrhea Dehydration CHF, chronic Disposition: ADMITTED INPATIENT Admitting Physician: Luke Peñaloza Condition: STABLE Referrals: TATYANA SETHI MD (PCP) Problem Qualifiers Primary Impression: Fall Encounter type: initial encounter Qualified Codes: W19.XXXA - Unspecified fall, initial encounter Additional Impressions: Diarrhea Diarrhea type: unspecified type Qualified Codes: R19.7 - Diarrhea, unspecified CHF, chronic Heart failure type: unspecified Qualified Codes: I50.9 - Heart failure, unspecified DESHAUN ALANIS MD Aug 15, 2019 20:37
[2019-08-15] MEDS ORDERED: fentaNYL PF VIAL 100 MCG/2 ML VIAL IVP ONE (20:45)
[2019-08-15 20:49] LABS: BASO # 0.1 x10^3/uL (0.0-0.2); BASO % 1 % (0-3); EOS # 0.1 x10^3/uL (0.0-0.7); EOS % 1 % (0-3); HEMATOCRIT 37.8 % (36.0-47.0); HEMOGLOBIN 12.2 g/dL (12.0-15.5); LYMPH # 1.4 x10^3/uL (1.0-4.8); LYMPH % 11 % (24-48); MEAN CORPUSCULAR HEMOGLOBIN 30 pg (25-35); MEAN CORPUSCULAR HGB CONC 32 g/dL (31-37); MEAN CORPUSCULAR VOLUME 93 fL (79-100); MONO # 1.1 x10^3/uL (0.0-1.1); MONO % 9 % (0-9); NEUT # 9.4 x10^3/uL (1.8-7.7); NEUT % 78 % (31-73); PLATELET COUNT 216 x10^3/uL (140-400); RED BLOOD COUNT 4.06 x10^6/uL (3.50-5.40); RED CELL DISTRIBUTION WIDTH 18.2 % (11.5-14.5); WHITE BLOOD COUNT 12.1 x10^3/uL (4.0-11.0)
[2019-08-15 20:54] LABS: CALCIUM 8.8 mg/dL (8.5-10.1); CREATININE 1.5 mg/dL (0.6-1.0); GFR 33.2
[2019-08-15 21:01] LABS: ALBUMIN/GLOBULIN RATIO 0.8 (1.0-1.7); TOTAL BILIRUBIN 0.3 mg/dL (0.2-1.0); TOTAL PROTEIN 4.5 g/dL (6.4-8.2)
--- NOTE | 2019-08-15 21:13 | RAD ---
CT Head W/O Contrast: History: Fall, head injury Comparison: April 22, 2018 Axial images were obtained without contrast. There is moderate diffuse atrophy. There is no mass effect, extraaxial fluid collections or hydrocephalus. There is no gross bleed. Marked, diffuse periventricular and subcortical white matter hypoattenuation is seen. There is no focal loss of alonso-white matter distinction to suggest acute ischemia, i.e. stroke. There is prior right-sided mastoidectomy. Impression: No acute findings. PQRS Compliance Statement: One or more of the following individualized dose reduction techniques were utilized for this examination: 1. Automated exposure control 2. Adjustment of the mA and/or kV according to patient size 3. Use of iterative reconstruction technique Electronically signed by: Tahir Merritt III, MD (08/15/2019 9:10 PM) [id number]
--- NOTE | 2019-08-15 21:39 | RAD ---
EXAM: CT thoracic and lumbar spine without contrast. HISTORY: Thoracolumbar pain and tenderness. TECHNIQUE: CT of the thoracic and lumbar spine was performed without intravenous contrast. One or more of the following individualized dose reduction techniques were utilized for this examination: 1. Automated exposure control. 2. Adjustment of the mA and/or kV according to patient size. 3. Use of iterative reconstruction technique. COMPARISON: 08/24/2018. 09/13/2016. FINDINGS: Masslike consolidation in the suprahilar left upper lobe measures 3.1 x 2.7 cm transaxially. This is been present chronically and may reflect posttreatment change in the setting of lung cancer or architectural distortion in the setting of remote inflammation. There is moderate centrilobular emphysema. Interstitial line thickening is consistent with mild pulmonary edema. There are small bilateral pleural effusions. Pacemaker leads are partially visualized. There are diffuse bulky atherosclerotic calcifications throughout the visualized aorta. These result in abdominal aortic stenosis proximally. A right renal artery stent is noted. Bilateral common iliac and left external iliac stents are also noted. Patency cannot be assessed without contrast. The gallbladder is surgically absent. The uterus is surgically absent. There are changes of pelvic floor relaxation. There is wall thickening of the sigmoid colon in a region of severe diverticulosis. This appears chronic. There is mild left hydronephrosis and hydroureter to the level where the ureter passes adjacent to the sigmoid colon. There is a small amount of free pelvic fluid. There is a mild thoracic dextrocurvature. No fractures are identified. Osteopenia appears moderate. Intervertebral disc heights are maintained. There is a moderate central disc protrusion at T7-8, resulting in mild central canal stenosis. There are also small disc herniations centrally at T8-9 and in the right paracentral distribution at T10-11. The right lateral recess is at least moderately narrowed at T9-10. No lumbar fractures are identified. There is a minimal lower lumbar dextrocurvature. Intervertebral disc heights are maintained for patient age with diffuse mild to moderate endplate remodeling. At L1-2, there is a moderate posterior disc bulge. There is no clear stenosis. At L2-3, there is a small posterior disc bulge. Facet and ligamentum flavum hypertrophy is moderate. Central canal stenosis is moderate. Neural foraminal stenosis is mild on the right. At L3-4, there is a moderate posterior disc bulge. Facet and ligamentum flavum hypertrophy is moderate. Central canal stenosis is moderate. Neural foraminal stenosis is mild on the left. At L4-5, there is a moderate posterior disc bulge. Facet osteoarthritis is moderate to severe on the left. Ligamentum flavum hypertrophy is moderate bilaterally. Central canal stenosis is moderate to severe. Neural foraminal stenosis is moderate on the left. At L5-S1, there is a moderate posterior disc bulge. Facet osteoarthritis is mild bilaterally. Neural foraminal stenosis is mild on the left and moderate on the right. IMPRESSION: 1. No fracture or malalignment within the thoracic or lumbar spine. 2. Disc herniations and degenerative changes result in central canal stenosis which is up to moderate/severe at L4-5 and moderate from L2 through L4. Additional disc herniations result in mild central canal stenosis at T7-8 and moderate appearing right lateral recess stenosis at T10-11. 3. 3.1 cm left suprahilar chronic masslike consolidation. Correlate for posttreatment changes in the setting of prior lung cancer versus old inflammatory change. 4. Findings consistent with volume overload with mild pulmonary edema, small bilateral pleural effusions and small ascites. 5. Moderate centrilobular emphysema. 6. Severe appearing proximal abdominal aortic stenosis. 7. Mild left hydronephrosis. The point of obstruction appears to be at the point where the ureter passes the sigmoid colon which is thickened in the setting of chronic diverticular disease. Electronically signed by: Elmira Zamarripa MD (08/15/2019 9:36 PM) [facility]
--- NOTE | 2019-08-15 21:47 | EKG ---
[facility] [address] [place] [address] Test Date: 2019-08-15 Test Time: 20:24:04 Pat Name: SLIME MOTA Department: Room: Gender: F [employer]: : 1935 Requested By: DESHAUN ALANIS Order Number: [id number] Reading MD: Measurements Intervals [place] Rate: 67 P: 115 SD: 270 QRS: -6 QRSD: 88 T: 154 QT: 402 QTc: 427 Interpretive Statements SINUS RHYTHM PROLONGED SD INTERVAL LEFTWARD AXIS LVH WITH REPOLARIZATION ABNORMALITY QRS(T) CONTOUR ABNORMALITY CONSIDER ANTEROSEPTAL MYOCARDIAL DAMAGE CONSISTENT WITH INFERIOR INFARCT PROBABLY OLD ABNORMAL ECG No previous ECG available for comparison
--- NOTE | 2019-08-15 21:50 | RAD ---
EXAM: HIP LEFT 2V WITH PELVIS. HISTORY: Left hip pain after a fall. COMPARISON: None. FINDINGS: No fractures are identified. The joint spaces and alignment of both hips are maintained. Biiliac stents, vascular clips and atherosclerotic calcifications are noted. Stool throughout the colon is consistent with constipation. IMPRESSION: 1. No fracture. 2. Correlate for constipation. Electronically signed by: Elmira Zamarripa MD (08/15/2019 9:47 PM) [facility]
[2019-08-15 22:06] LABS: BILIRUBIN,URINE NEGATIVE (NEG); CLARITY,URINE CLEAR; COLOR,URINE YELLOW; NITRITE,URINE NEGATIVE (NEG); PROTEIN,URINE >=300 mg/dL (NEG-TRACE); UROBILINOGEN,URINE 0.2 mg/dL (0.2 mg/dL)
[2019-08-15 22:15] LABS: AMORPHOUS SEDIMENT,UR PRESENT /HPF; BACTERIA,URINE 0 /HPF (0-FEW); SQUAMOUS EPITHELIAL CELL,UR OCC /LPF
[2019-08-15] MEDS ORDERED: ACETAMINOPHEN 325 MG TABLET. PO PRN (22:15)
[2019-08-15] MEDS ORDERED: ONDANSETRON PF 4 MG/2 ML VIAL. IV PRN (22:15)
[2019-08-15 22:28] LABS: INFLUENZA A PATIENT NEGATIVE (NEGATIVE); INFLUENZA B PATIENT NEGATIVE (NEGATIVE)
[2019-08-15 23:00] VITALS: BP 179/83
--- NOTE | 2019-08-15 23:00 | NUR ---
Pt. arrived on unit at 2255 by bed from ER. Pt. complains of pain. Assessment done at this time. Call light within reach with bed in lowest position. Will continue to monitor.
[2019-08-15] MEDS: HYDROcodone/APAP 5/325MG 1 TAB TABLET PO PRN (23:35)
[2019-08-15] MEDS: hydrALAZINE 20 MG/ML VIAL. IVP PRN (23:43)
[2019-08-16] MEDS ORDERED: fentaNYL PF VIAL 100 MCG/2 ML VIAL IVP PRN (01:00)
[2019-08-16 03:00] VITALS: BP 150/63
[2019-08-16] MEDS: HYDROcodone/APAP 5/325MG 1 TAB TABLET PO PRN ×2 (07:41→20:58)
[2019-08-16 07:59] VITALS: BP 174/57
[2019-08-16] MEDS ORDERED: MAGNESIUM HYDROXIDE 2,400 MG/30 ML ORAL.SUSP. PO PRN (11:15)
[2019-08-16] MEDS ORDERED: SENNOSIDES 8.6 MG TABLET PO PRN (11:15)
--- NOTE | 2019-08-16 11:23 | HP ---
ADMIT DATE: 08/16/2019 CHIEF COMPLAINT AND HISTORY OF PRESENT ILLNESS: This 84-year-old white female, patient of Dr. Luke Gonzalez, is known to me from prior hospitalization. The patient has been at home on hospice for congestive heart failure. She is also known to have history of cancer of the lung, COPD, hypertension, hyperlipidemia. She fell off slipping, getting up from the couch on the day of admission. It does not sound like there was syncope associated with it. She was brought to the Emergency Room where she was admitted for the same. She has also had diarrhea over the last 2-3 weeks; it has gotten progressively weaker from the same. Hospice has been treating this with some antibiotic that sounds like a pill at first and now oral, wondering if this is vancomycin as she notes she has had some decreased hearing since she has been on this, although it should be none of this with no absorption of the same. We will nevertheless check a stool for C. diff. She had a negative imaging in the Emergency Room for acute fractures, but was admitted for the above constellation of symptoms. PAST MEDICAL HISTORY: History is remarkable for cancer, CHF, DVT, COPD, GERD, hyperlipidemia, hypertension, NC, pneumonia, renal disease, vascular disease, pacemaker status, lupus, colitis, sleep apnea, gout, Mohan's, history of shingles. PAST SURGICAL HISTORY: Remarkable for angioplasty, hysterectomy, cholecystectomy, lumbar laminectomy, oophorectomy, pacemaker, breast biopsy, trigger thumb, stents to lower extremities for PAD, renal artery stent, diverticulitis. MEDICATIONS: Are brought with the patient, listed on the computer and have been addressed. ALLERGIES: SHE HAS MULTIPLE ALLERGIES, also listed on the computer and have been addressed. SOCIAL HISTORY: She is a former smoker. Nondrinker. Does not use alcohol. Lives at home alone. FAMILY HISTORY: Noncontributory. REVIEW OF SYSTEMS: Remarkable for that as mentioned above as well as having quite a cough over the last week or so in addition. PHYSICAL EXAMINATION: GENERAL: She is well-developed, well-nourished white female, who appears chronically ill. VITAL SIGNS: Stable. She is afebrile. HEAD, EYES, EARS, NOSE AND THROAT: Unremarkable. NECK: Supple, without adenopathy or thyromegaly. CHEST: Reveals decreased breath sounds, but clear. HEART: Regular rate and rhythm without S3, S4 or murmur. ABDOMEN: Soft, nontender, without hepatosplenomegaly or masses. EXTREMITIES: Without cyanosis, clubbing or edema. She does complain of some right ankle pain, but has a little bit of mild tenderness laterally over the ligaments and we will observe this for now. NEUROLOGIC: She is intact. IMPRESSION: Fall. ADDITIONAL DIAGNOSES: Diarrhea, dehydration, cough, congestive heart failure; chronic. PLAN: The patient has been admitted. I will obtain a chest x-ray and stool for C. diff; otherwise, we will continue present therapy. PIETER ESCALONA MD DR: REBECCA/dianelys JOB#: [id number] / [id number]
[2019-08-16 11:59] VITALS: BP 198/70
[2019-08-16] MEDS ORDERED: FUROSEMIDE 40 MG TABLET. PO SCH (12:00)
[2019-08-16] MEDS: IPRATRPIUM/ALBUTEROL 0.5/2.5MG 3 ML NEBU. NEB SCH ×3 (12:00→19:37)
--- NOTE | 2019-08-16 12:17 | RAD ---
CHEST PA LATERAL History: Cough Comparison: August 24, 2018 chest x-ray. CT August 15, 2019 Findings: Hyperinflation. Small bilateral pleural effusions. Bibasilar patchy opacities. Diffuse interstitial thickening. Left suprahilar masslike opacity better characterized on prior CT. Stable left-sided pacemaker. Postop changes upper abdomen. Unchanged heart size. No pneumothorax. Impression: 1. Mild diffuse interstitial thickening, represent pulmonary edema or atypical infection, unchanged. 2. Small bilateral pleural effusions with adjacent opacities, unchanged. Electronically signed by: Franklyn Palacios DO (08/16/2019 12:14 PM) [id number]
[2019-08-16] MEDS: CHOLECALCIFEROL (VITAMIN D3) 1,000 UNIT TABLET PO SCH (12:20)
[2019-08-16] MEDS ORDERED: TORS100T3 PO (13:42)
[2019-08-16] MEDS ORDERED: DIPH25CA20 PO (13:42)
--- NOTE | 2019-08-16 13:43 | NUR ---
Pt's son brought pill bottles from home. Meds reviewed and updated in computer, pill bottles returned to son to take home.
[2019-08-16 17:10] VITALS: BP 195/68
[2019-08-16] MEDS: CARVEDILOL 12.5 MG TABLET. PO SCH (17:10)
[2019-08-16 19:30] VITALS: BP 173/58
[2019-08-16] MEDS ORDERED: BUDESONIDE 0.5 MG/2 ML NEBU. NEB SCH (20:00)
[2019-08-16] MEDS: LATANOPROST 0.005% OPHTH SOLUTION 2.5ML BOTTLE. OU SCH (20:58)
[2019-08-16] MEDS: AMITRIPTYLINE HCL 10 MG TABLET. PO SCH (20:58)
[2019-08-16 23:00] VITALS: BP 158/53
[2019-08-17 03:25] VITALS: BP 180/69
[2019-08-17] MEDS: hydrALAZINE 20 MG/ML VIAL. IVP PRN (03:34)
[2019-08-17] MEDS: HYDROcodone/APAP 5/325MG 1 TAB TABLET PO PRN ×2 (03:34→21:27)
[2019-08-17 07:00] VITALS: BP 183/67
--- NOTE | 2019-08-17 07:12 | NUR ---
Pt. has been diarrhea free for more than 24 hours. Cdiff precaution has been discontinued.
--- NOTE | 2019-08-17 07:47 | NUR ---
Dr. Gonzalez on the unit, notified of pt's c/o itching. No verbal orders received at this time.
--- NOTE | 2019-08-17 07:50 | PDOC ---
Provider Note Provider Note vss, no chfrom [facility]- lives alone and is too weak , rehab eval- [facility] re itch, adv diet FE PEÑALOZA MD Aug 17, 2019 07:50
--- NOTE | 2019-08-17 08:09 | NUR ---
Dr. Gonzalez paged re: pt's c/o itching.
--- NOTE | 2019-08-17 08:10 | NUR ---
Dr. Gonzalez returned call, telephone orders received.
[2019-08-17] MEDS: IPRATRPIUM/ALBUTEROL 0.5/2.5MG 3 ML NEBU. NEB SCH ×4 (08:11→18:31)
[2019-08-17] MEDS ORDERED: diphenhydrAMINE HCL 25 MG CAPSULE PO PRN (08:15)
[2019-08-17] MEDS: CHOLECALCIFEROL (VITAMIN D3) 1,000 UNIT TABLET PO SCH (09:07)
[2019-08-17] MEDS: CARVEDILOL 12.5 MG TABLET. PO SCH ×2 (09:07→17:24)
[2019-08-17] MEDS: amLODIPine BESYLATE 10 MG TABLET PO SCH (09:07)
[2019-08-17] MEDS: ASPIRIN CHEWABLE 81 MG TABLET. PO SCH (09:07)
[2019-08-17 11:00] VITALS: BP 172/71
--- NOTE | 2019-08-17 12:15 | NUR ---
Dr. Gonzalez paged re: plan of care and if pt is to be d/c'd today or tomorrow.
--- NOTE | 2019-08-17 13:46 | NUR ---
SW following. Discussed with RN, pt from home alone, has a son who helps out. Pt was on services with [facility] ([phone]). AHSAN met with pt to determine if pt wanting hospice or rehab as PT recommending SNU. Pt could not really make a decision and wanted to speak with her son about it. Pt reported she has been to [facility] in the past. AHSAN spoke with pt's son, Tyler - he advised he would be visiting with pt today and will discuss with her and come up with a plan. AHSAN will continue to follow. CORINA notified. Addendum: 08/17/19 at 1622 by MIR FOREMAN AHSAN met with pt again, pt would like to go to rehab and would like [facility] as she has been before. AHSAN confirmed with pt's son, Butch. SW to fax referral when pt has worked with OT. AHSAN will continue to follow. CORINA notified.
[2019-08-17 15:00] VITALS: BP 181/72
[2019-08-17 19:00] VITALS: BP 152/93
[2019-08-17] MEDS: LATANOPROST 0.005% OPHTH SOLUTION 2.5ML BOTTLE. OU SCH (21:27)
[2019-08-17] MEDS: AMITRIPTYLINE HCL 10 MG TABLET. PO SCH (21:27)
[2019-08-17 23:16] VITALS: BP 152/58
--- NOTE | 2019-08-18 02:35 | NUR ---
Attempted to reach Dr. Gonazlez for pt.'s blood pressure. Left a voicemail message. WIll continue to monitor.
[2019-08-18 03:30] VITALS: BP 176/71
[2019-08-18 07:00] VITALS: BP 193/88
[2019-08-18] MEDS: IPRATRPIUM/ALBUTEROL 0.5/2.5MG 3 ML NEBU. NEB SCH ×4 (07:24→19:53)
[2019-08-18] MEDS: ASPIRIN CHEWABLE 81 MG TABLET. PO SCH (08:16)
[2019-08-18] MEDS: CARVEDILOL 12.5 MG TABLET. PO SCH ×2 (08:16→17:01)
[2019-08-18] MEDS: CHOLECALCIFEROL (VITAMIN D3) 1,000 UNIT TABLET PO SCH (08:17)
[2019-08-18] MEDS: amLODIPine BESYLATE 10 MG TABLET PO SCH (08:17)
--- NOTE | 2019-08-18 08:53 | PDOC ---
Provider Note Provider Note feels better but still weak- considering [facility] if available as she lives alopne- resume some home meds re higher bp- lab- disp pending re accceptance, could go anytime FE PEÑALOZA MD Aug 18, 2019 08:53
[2019-08-18] MEDS: TORSEMIDE 20 MG TABLET. PO SCH (09:00)
[2019-08-18] MEDS ORDERED: NON FORMULARY ITEM (Omeprazole 40 MG) PO SCH (09:00)
[2019-08-18] MEDS ORDERED: diphenhydrAMINE HCL 25 MG CAPSULE PO PRN (09:00)
--- NOTE | 2019-08-18 09:48 | NUR ---
Patient shows no signs of COVID-19. afrebrile, no cough, vitals stable.
[2019-08-18] MEDS: CALCIUM CARBONATE 500 MG TABLET PO SCH ×2 (10:14→17:01)
[2019-08-18] MEDS: ALLOPURINOL 300 MG TABLET. PO SCH (10:14)
[2019-08-18 11:00] VITALS: BP 201/78
[2019-08-18 12:39] LABS: CREATININE 1.3 mg/dL (0.6-1.0); GFR 39.1; POTASSIUM 4.2 mmol/L (3.5-5.1)
--- NOTE | 2019-08-18 13:40 | NUR ---
SW following. Discussed with RN, cyber ops planner Dariela faxed referral to [facility]. Pt is accepted pending insurance auth. AHSAN will continue to follow.
[2019-08-18 15:00] VITALS: BP 180/61
[2019-08-18] MEDS: LOSARTAN POTASSIUM 50 MG TABLET. PO SCH (17:01)
[2019-08-18 19:05] VITALS: BP 167/69
[2019-08-18] MEDS: AMITRIPTYLINE HCL 10 MG TABLET. PO SCH (20:55)
[2019-08-18] MEDS: LATANOPROST 0.005% OPHTH SOLUTION 2.5ML BOTTLE. OU SCH (20:57)
[2019-08-18 23:12] VITALS: BP 160/65
[2019-08-19 03:00] VITALS: BP 166/68
[2019-08-19 07:00] VITALS: BP 171/68
[2019-08-19] MEDS: IPRATRPIUM/ALBUTEROL 0.5/2.5MG 3 ML NEBU. NEB SCH ×4 (07:25→20:24)
--- NOTE | 2019-08-19 08:13 | PDOC ---
Provider Note Provider Note vss, exam same- awaits transfer FE PEÑALOZA MD Aug 19, 2019 08:13
--- NOTE | 2019-08-19 08:15 | SNU/HH DC ---
DISCHARGE ORDERS DISCHARGE INFORMATION: FINAL DIAGNOSIS Problems Medical Problems: (1) CHF, chronic Status: Acute (2) Dehydration Status: Acute (3) Diarrhea Status: Acute (4) Fall Status: Acute CONDITION ON DISCHARGE: Stable CODE STATUS: Code Status: DNR/DNI SNF: SNF STAY <30 DAYS: Yes POST DISCHARGE ORDERS: ACTIVITY ORDERS: Resume previous activity WEIGHT BEARING STATUS: As tolerated BATHING ORDERS: No Tub Bath until see WOUND/INCISION CARE: Other, see below CHECKS AFTER DISCHARGE: CHECKS AFTER DISCHARGE: Check blood press - daily, Weigh Yourself Daily TREATMENT/EQUIPMENT ORDERS: ADAPTIVE EQUIPMENT NEEDED: None RESPIRATORY EQUIPMENT NEEDED: Oxygen Physical Therapy For: Evalulation/Treatment Occupational Therapy For: Evaluation/Treatment DISCHARGE MEDICATIONS: Home Meds Active Scripts Furosemide (FUROSEMIDE) 40 Mg Tablet, 40 MG PO DAILY for heart failure, swelling for 30 Days, #30 TAB Prov:TATYANA SETHI MD 07/08/18 Amlodipine Besylate (AMLODIPINE BESYLATE) 10 Mg Tablet, 10 MG PO DAILY for hypertension for 30 Days, #30 TAB Prov:TATYANA SETHI MD 07/08/18 Ipratropium/Albuterol Sulfate (DUONEB 0.5-3(2.5) MG/3 ML) 3 Ml Ampul.neb, 3 ML NEB RTQID for 30 Days, #120 EACH 4 Refills Prov:AFTAB MCCALL MD 09/20/17 Acetaminophen (TYLENOL) 325 Mg Tablet, 650 MG PO PRN Q8HRS PRN for PAIN, #20 Prov:NICHOLE GUNN MD 11/18/16 Reported Medications Torsemide (TORSEMIDE) 100 Mg Tablet, 50 MG PO DAILY for diuretic, TAB 08/16/19 Diphenhydramine Hcl (BANOPHEN) 25 Mg Capsule, 25 MG PO PRN Q6HRS PRN for ITCHING, CAP 08/16/19 Azelastine Hcl (AZELASTINE HCL) 137 Mcg/0.137 Ml [place].pump, 2 SPRAY NS BID for dry, #90 ML 3 Refills 08/24/18 Aspirin (ASPIRIN) 81 Mg Tab.chew, 1 TAB PO DAILY for unknown, #30 TAB 3 Refills 08/24/18 Hydralazine Hcl (HYDRALAZINE HCL) 50 Mg Tablet, 100 MG PO BID for BLOOD PRESSURE 07/05/18 Amitriptyline Hcl (AMITRIPTYLINE HCL) 10 Mg Tablet, 10 MG PO HS for SLEEP 07/05/18 Latanoprost (LATANOPROST) 2.5 Ml Drops, 1 DROP EACHEYE HS for GLAUCOMA 07/05/18 Carvedilol (CARVEDILOL ) 12.5 Mg Tablet, 1 TAB PO BID for htn, #180 TAB 1 Refill 02/27/18 Psyllium Husk (Daily Fiber) 0.52 Gm Capsule, 0.52 GM PO DAILY, CAP 02/27/18 Meclizine Hcl (MECLIZINE HCL) 25 Mg Tablet, 1 TAB PO PRN TID for dizziness, #30 TAB 07/31/17 Simethicone (GAS-X) 125 Mg Tab.chew, 125 MG PO PRN QID PRN for GAS / BLOATING, TAB.CHEW 07/31/17 Cholecalciferol (Vitamin D3) (VITAMIN D3) 1,000 Unit Tablet, 2 TAB PO DAILY for supplement, #30 TAB 5 Refills 07/31/17 Calcium Carbonate (CALCIUM) 600 Mg Tablet, 600 MG PO BIDAC for supplement, TAB 07/31/17 [preser vision ] No Conflict Check, 2 TAB PO DAILY for eye vitamin 07/31/17 Budesonide (BUDESONIDE) 0.5 Mg/2 Ml Ampul.neb, 1 VIAL NEB BID for COPD, #120 ML 3 Refills 07/31/17 Allopurinol (ALLOPURINOL) 300 Mg Tablet, 1 TAB PO DAILY for gout, #30 TAB 5 Refills 07/31/17 Sennosides (SENNA) 8.6 Mg Tablet, 8.6 MG PO PRN BID PRN for CONSTIPATION, TAB 07/31/17 Magnesium Hydroxide (MILK OF MAGNESIA) 400 Mg/5 Ml Oral.susp, 400 MG PO PRN DAILY PRN for CONSTIPATION, MISC 07/31/17 Losartan Potassium (LOSARTAN POTASSIUM) 100 Mg Tablet, 100 MG PO DAILYWSUP, TAB 07/31/17 Arformoterol Tartrate (BROVANA) 15 Mcg/2 Ml Vial.neb, 1 VIAL NEB BID for copd LAST DOSE GIVEN 03/09/16 IN AM TAKE NEXT DOSE TONIGHT 03/09/16 AT BEDTIME 07/12/15 Omeprazole (OMEPRAZOLE) 40 Mg Capsule.dr, 40 MG PO DAILY for GERD TAKE NEXT DOSE TOMORROW 03/10/16 WITH BREAKFAST 10/28/13 FE PEÑALOZA MD Aug 19, 2019 08:15
[2019-08-19] MEDS: CHOLECALCIFEROL (VITAMIN D3) 1,000 UNIT TABLET PO SCH (08:38)
[2019-08-19] MEDS: CALCIUM CARBONATE 500 MG TABLET PO SCH ×2 (08:39→16:06)
[2019-08-19] MEDS: CARVEDILOL 12.5 MG TABLET. PO SCH ×2 (08:39→16:07)
[2019-08-19] MEDS: amLODIPine BESYLATE 10 MG TABLET PO SCH (08:39)
[2019-08-19] MEDS: ACETAMINOPHEN 325 MG TABLET. PO PRN ×2 (08:39→21:11)
[2019-08-19] MEDS: ALLOPURINOL 300 MG TABLET. PO SCH (08:39)
[2019-08-19] MEDS: ASPIRIN CHEWABLE 81 MG TABLET. PO SCH (08:39)
[2019-08-19] MEDS: TORSEMIDE 20 MG TABLET. PO SCH (08:39)
[2019-08-19 11:00] VITALS: BP 166/77
--- NOTE | 2019-08-19 11:19 | NUR ---
SW following. Discussed with RN, SW faxed discharge paperwork to [facility]. Awaiting insurance auth. SW will continue to follow.
[2019-08-19 15:00] VITALS: BP 160/70
[2019-08-19] MEDS: LOSARTAN POTASSIUM 50 MG TABLET. PO SCH (16:07)
[2019-08-19 19:00] VITALS: BP 166/80
[2019-08-19] MEDS: AMITRIPTYLINE HCL 10 MG TABLET. PO SCH (21:11)
[2019-08-19] MEDS: LATANOPROST 0.005% OPHTH SOLUTION 2.5ML BOTTLE. OU SCH (21:11)
[2019-08-19 23:37] VITALS: BP 154/63
[2019-08-20 03:25] VITALS: BP 191/76
[2019-08-20] MEDS: HYDROcodone/APAP 5/325MG 1 TAB TABLET PO PRN ×3 (04:33→21:06)
[2019-08-20] MEDS: CALCIUM CARBONATE 500 MG TABLET PO SCH ×2 (06:23→18:09)
[2019-08-20 07:00] VITALS: BP 156/70
[2019-08-20] MEDS: IPRATRPIUM/ALBUTEROL 0.5/2.5MG 3 ML NEBU. NEB SCH ×4 (07:05→21:36)
[2019-08-20] MEDS: amLODIPine BESYLATE 10 MG TABLET PO SCH (08:25)
[2019-08-20] MEDS: CARVEDILOL 12.5 MG TABLET. PO SCH ×2 (08:25→18:09)
[2019-08-20] MEDS: ALLOPURINOL 300 MG TABLET. PO SCH (08:26)
[2019-08-20] MEDS: CHOLECALCIFEROL (VITAMIN D3) 1,000 UNIT TABLET PO SCH (08:26)
[2019-08-20] MEDS: ASPIRIN CHEWABLE 81 MG TABLET. PO SCH (08:26)
[2019-08-20] MEDS: TORSEMIDE 20 MG TABLET. PO SCH (08:37)
--- NOTE | 2019-08-20 09:48 | NUR ---
SW following. Discussed with RN, insurance denied for pt to go to SNU. Peer to peer available needs to be initiated by 1500 today (ph: [phone]). Case management notified, to arrange. RN notified.
[2019-08-20 11:00] VITALS: BP 165/79
[2019-08-20] MEDS: MECLIZINE HCL 12.5 MG TABLET. PO PRN (14:04)
[2019-08-20 15:00] VITALS: BP 152/67
[2019-08-20] MEDS: LOSARTAN POTASSIUM 50 MG TABLET. PO SCH (18:10)
[2019-08-20 19:00] VITALS: BP 169/68
[2019-08-20] MEDS: LATANOPROST 0.005% OPHTH SOLUTION 2.5ML BOTTLE. OU SCH (21:05)
[2019-08-20] MEDS: AMITRIPTYLINE HCL 10 MG TABLET. PO SCH (21:06)
[2019-08-20 23:02] VITALS: BP 150/58
[2019-08-21 03:02] VITALS: BP 135/52
[2019-08-21] MEDS: MECLIZINE HCL 12.5 MG TABLET. PO PRN (05:59)
[2019-08-21] MEDS: CALCIUM CARBONATE 500 MG TABLET PO SCH ×2 (05:59→16:30)
[2019-08-21 07:00] VITALS: BP 157/69
[2019-08-21] MEDS: IPRATRPIUM/ALBUTEROL 0.5/2.5MG 3 ML NEBU. NEB SCH ×4 (07:05→15:33)
--- NOTE | 2019-08-21 07:50 | PDOC ---
Provider Note Provider Note stable, weak , dizzy at times- labs same vss- no new findings- called dr boothe last pm and this am, left message, , will try again later FE PEÑALOZA MD Aug 21, 2019 07:50
[2019-08-21] MEDS ORDERED: hydroCHLOROthiazide 12.5 MG CAPSULE PO SCH (09:00)
[2019-08-21] MEDS: ALLOPURINOL 300 MG TABLET. PO SCH (09:42)
[2019-08-21] MEDS: CARVEDILOL 12.5 MG TABLET. PO SCH ×2 (09:42→17:00)
[2019-08-21] MEDS: ASPIRIN CHEWABLE 81 MG TABLET. PO SCH (09:42)
[2019-08-21] MEDS: amLODIPine BESYLATE 10 MG TABLET PO SCH (09:43)
[2019-08-21] MEDS: CHOLECALCIFEROL (VITAMIN D3) 1,000 UNIT TABLET PO SCH (09:43)
[2019-08-21 11:00] VITALS: BP 138/59
[2019-08-21 15:00] VITALS: BP 144/61
[2019-08-21] MEDS: LOSARTAN POTASSIUM 50 MG TABLET. PO SCH (17:00)
== END 2019-08-21 17:15 | disposition hospice, home (50) | DRG 640 ==
LOC: ER 20:06 → 4 NORTH 22:33 → OBSVTOIN 22:33
PROVIDERS: ADMIT Family Medicine; ATTEND Family Medicine
DX: E86.0 Dehydration (principal); J96.20 Acute and chronic respiratory failure, unspecified whether with hypoxia or hypercapnia; N13.30 Unspecified hydronephrosis; I50.9 Heart failure, unspecified; K21.9 Gastro-esophageal reflux disease without esophagitis; M10.9 Gout, unspecified; E78.00 Pure hypercholesterolemia, unspecified; I11.0 Hypertensive heart disease with heart failure; J43.2 Centrilobular emphysema; I35.0 Nonrheumatic aortic (valve) stenosis; E78.5 Hyperlipidemia, unspecified; M48.04 Spinal stenosis, thoracic region; M48.061 Spinal stenosis, lumbar region without neurogenic claudication; Z90.710 Acquired absence of both cervix and uterus; Z90.721 Acquired absence of ovaries, unilateral; Z95.0 Presence of cardiac pacemaker; Z87.891 Personal history of nicotine dependence; Z88.5 Allergy status to narcotic agent; Z88.8 Allergy status to other drugs, medicaments and biological substances; I25.2 Old myocardial infarction; Z87.01 Personal history of pneumonia (recurrent); Z86.19 Personal history of other infectious and parasitic diseases; Z85.118 Personal history of other malignant neoplasm of bronchus and lung; Z86.718 Personal history of other venous thrombosis and embolism
CPT/HCPCS: 36415; 51702; 70450; 71046; 72128; 72131; 73502; 80048; 80053; 81001; 82550; 85025; 87804; 93005; 94640; 94760; 96361; 96374; 99285; J0360; J2405; J3010; J7030; 97110; 97530; 97535; G0378; J7626; J8597; Q0163